=== PATIENT | male | born 1955 | race Hispanic/Latino ===

== ENCOUNTER 2018-12-19 22:10 | Emergency (ER) | payer BC, OTHER ==
--- OUTSIDE RECORDS SUMMARY | 2018-12-19 22:13 | XMS REPORT ---
:1955 [facility] Address [address] [place] [address] Dr. Reynoso [address] [place] [id number] Care Team Providers Name Role Phone Unavailable Unavailable Unavailable Problems This patient has no known problems. Allergies, Adverse Reactions, Alerts This patient has no known allergies or adverse reactions. Medications This patient has no known medications.
--- OUTSIDE RECORDS SUMMARY | 2018-12-19 22:13 | XMS REPORT | Clinical Summary ---
:1955 Author Organization [facility] Address [address] [place] [address] Care Team Providers Name Role Phone Manjinder Lovelace MD Primary Care Provider Allergies Not on File Medications Not on file Active Problems Not on file Encounters Date Type Specialty Care Team Description 11/27/2018 Hospital Encounter Radiology Tate Moreno Renal calculus 11/27/2018 Transcribe Orders Access Tate Moreno Renal calculus ( Primary MD Dx) after 12/18/2017 Social History Tobacco Use Types Packs/Day Years Used Date Never Assessed Sex Assigned at Date Recorded Not on file Job Start Date Occupation Industry Not on file Not on file Not on file Travel History Travel Start Travel End No recent travel history available. Last Filed Vital Signs Not on file Plan of Treatment Health Maintenance Due Date Last Done Comments COLON CANCER SCREENING 2004 SHINGLES VACCINES (#1) 2004 INFLUENZA VACCINE 04/03/2019 Procedures Procedure Name Priority Date/Time Associated Diagnosis Comments XR KUB KIDNEY Routine 11/27/2018 9:17 AM Renal calculus Results for this URETER BLADDER CDT procedure are in the results section. after 12/18/2017 Results XR Kub Kidney Ureter Bladder (11/27/2018 9:17 AM CDT) Narrative Performed At EXAMINATION:XR KUB KIDNEY URETER BLADDER [facility] CLINICAL HISTORY:N20.0 Calculus of kidney, N20.0 COMPARISON:November 28, 2017 IMPRESSION: No radiopaque calculi identified overlying the renal contours or expected course of the ureters. There are couple of pelvic phleboliths. The bowel gas pattern is nonspecific. Visualized lung bases are free of acute disease. Regional skeletal structures are within normal limits for age. I personally reviewed the images and the resident's findings and agree with the final report. [facility]-[id number] Procedure Note Hm Interface, Radiology Results Incoming - 11/27/2018 10:09 AM CDT EXAMINATION: XR KUB KIDNEY URETER BLADDER CLINICAL HISTORY: N20.0 Calculus of kidney, N20.0 COMPARISON: November 28, 2017 IMPRESSION: No radiopaque calculi identified overlying the renal contours or expected course of the ureters. There are couple of pelvic phleboliths. The bowel gas pattern is nonspecific. Visualized lung bases are free of acute disease. Regional skeletal structures are within normal limits for age. I personally reviewed the images and the resident's findings and agree with the final report. [facility]-[id number] Performing Organization Address City/State/Zipcode Phone Number [facility] [address] [place] [address] after 12/18/2017 Insurance Payer Benefit Plan / Group Subscriber ID Type Phone Address BCBS BCBS OUT OF STATE xxxxxxxxxxxx PPO Advance Directives Patient has advance care planning documents on file. For more information, please contact:Silvano Sorto[address] [place] [address]
[2018-12-19 22:42] LABS: Urine Blood 2+ (NEG); Urine Glucose NEGATIVE (NEG); Urine Protein 1+ (NEG); Urine Specific Gravity 1.025 (1.005-1.030); Urine pH 5.5 (5.0-7.0)
[2018-12-19 23:17] LABS: Urine Bacteria 20-50 /HPF (NONE SEEN); Urine Culture Reflex Order NOT NEEDED; Urine RBC <5 /HPF (NONE SEEN)
--- NOTE | 2018-12-19 23:22 | EDPHYS ---
Physician Documentation [facility] Name: Louis Grady Jr Age: 63 yrs Sex: Male : 1955 Arrival Date: 12/19/2018 Time: 22:11 Bed 26 Private MD: Whit Lovelace C ED Physician Gigi Singleton HPI: 12/19 23:12 This 63 yrs old Male presents to ER via Ambulatory with complaints of Urinary ps1 Frequency. 23:12 patient has a history of recurrent UTI's. Urologist in [place]. Has had scope and had ps1 bladder stones. Multiple courses of abx. Last UTI 6 months ago. No dysuria just frequency. Has chills but no fever. Cloudy urine. . Historical: - Allergies: 22:30 PENICILLINS; lp1 - Home Meds: 22:30 Janumet Oral [Active]; Glipizide Oral [Active]; levothyroxine oral [Active]; lp1 Hydrochlorothiazide Oral [Active]; tamsulosin oral oral [Active]; Tresiba FlexTouch U-100 100 unit/mL (3 mL) subcutaneous inpn 24 unit nightly [Active]; amlodipine oral [Active]; atorvastatin oral oral [Active]; - PMHx: 22:30 Diabetes - NIDDM; High Cholesterol; Hypertension; Hypothyroidism; Kidney stones; BPH; lp1 - PSHx: 22:30 Kidney stone removal; Shoulder surgery; lp1 - Immunization history:: Adult Immunizations up to date. - Social history:: Smoking status: Patient/guardian denies using tobacco. - Ebola Screening: : No symptoms or risks identified at this time. ROS: 23:12 Eyes: Negative for injury, pain, redness, and discharge, ENT: Negative for injury, ps1 pain, and discharge, Cardiovascular: Negative for chest pain, palpitations, and edema, Respiratory: Negative for shortness of breath, cough, wheezing, and pleuritic chest pain, Abdomen/GI: Negative for abdominal pain, nausea, vomiting, diarrhea, and constipation, MS/Extremity: Negative for injury and deformity, Skin: Negative for injury, rash, and discoloration, Neuro: Negative for headache, weakness, numbness, tingling, and seizure. 23:12 Constitutional: Positive for chills. 23:12 : Positive for urinary symptoms, urinary frequency. Exam: 23:12 Constitutional: This is a well developed, well nourished patient who is awake, alert, ps1 and in no acute distress. Head/Face: Normocephalic, atraumatic. Eyes: Pupils equal round and reactive to light, extra-ocular motions intact. Lids and lashes normal. Conjunctiva and sclera are non-icteric and not injected. ENT: Nares patent. No nasal discharge, no septal abnormalities noted. Tympanic membranes are normal and external auditory canals are clear. Oropharynx with no redness, swelling, or masses, exudates, or evidence of obstruction, uvula midline. Mucous membranes moist. Chest/axilla: Normal chest wall appearance and motion. Nontender with no deformity. No lesions are appreciated. Cardiovascular: Regular rate and rhythm. No gallops, murmurs, or rubs. Normal PMI, no JVD. No pulse deficits. Respiratory: Lungs have equal breath sounds bilaterally, clear to auscultation and percussion. No rales, rhonchi or wheezes noted. No increased work of breathing, no retractions or nasal flaring. Abdomen/GI: Soft, non-tender, with normal bowel sounds. No distension or tympany. No guarding or rebound. No evidence of tenderness throughout. Skin: Warm, dry with normal turgor. Normal color with no rashes, no lesions, and no evidence of cellulitis. MS/ Extremity: Pulses equal, no cyanosis. Neurovascular intact. Full, normal range of motion. Neuro: Awake and alert, GCS 15, oriented to person, place, time, and situation. Cranial nerves II-XII grossly intact. Sensory grossly intact. Vital Signs: 22:28 BP 149 / 83; Pulse 94; Resp 18; Temp 98.3(O); Pulse Ox 99% on R/A; Weight 103.42 kg; lp1 Height 5 ft. 8 in. (172.72 cm); Pain 5/10; 23:28 BP 144 / 78; Pulse 85; Resp 18; Pulse Ox 100% on R/A; Pain 2/10; mg2 22:28 Body Mass Index 34.67 (103.42 kg, 172.72 cm) lp1 MDM: 23:19 Patient medically screened. ps1 12/19 22:34 Order name: Urine Microscopic Only; Complete Time: 23:19 fc 12/19 22:34 Order name: Urine Culture 12/19 22:34 Order name: Urine Dipstick-Ancillary (obtain specimen); Complete Time: 22:34 12/19 22:36 Order name: Urine Dipstick--Ancillary (enter results) 12/19 22:37 Order name: Urine Dipstick-Ancillary; Complete Time: 23:00 EDMS Administered Medications: No medications were administered Disposition: 12/19/18 23:22 Discharged to Home. Impression: Acute cystitis. - Condition is Stable. - Discharge Instructions: Urinary Tract Infection, Adult. - Prescriptions for Bactrim DS 800- 160 mg Oral Tablet - take 1 tablet by ORAL route every 12 hours for 10 days; 20 tablet. - Medication Reconciliation Form, Thank You Letter, Antibiotic Education, Prescription Opioid Use form. - Follow up: Whit Lovelace MD; When: As needed; Reason: Recheck today's complaints, Continuance of care, Re-evaluation by your physician. Follow up: Emergency Department; When: As needed; Reason: Fever > 102 F, Trouble breathing, Worsening of condition. - Problem is new. - Symptoms are unchanged. Signatures: Dispatcher [employer] EDMS Mónica Hill RN RN fc Isa Gibson RN RN lp1 Gigi Singleton MD MD ps1 Percy Bautista, CARLOS RN mg2 Corrections: (The following items were deleted from the chart) 23:30 23:22 12/19/2018 23:22 Discharged to Home. Impression: Acute cystitis. Condition is mg2 Stable. Forms are Medication Reconciliation Form, Thank You Letter, Antibiotic Education, Prescription Opioid Use. Follow up: Whit Lovelace; When: As needed; Reason: Recheck today's complaints, Continuance of care, Re-evaluation by your physician. Follow up: Emergency Department; When: As needed; Reason: Fever > 102 F, Trouble breathing, Worsening of condition. Problem is new. Symptoms are unchanged. ps1
--- NOTE | 2018-12-19 23:22 | ER ---
Nurse's Notes [facility] Name: Louis Grady Jr Age: 63 yrs Sex: Male : 1955 Arrival Date: 12/19/2018 Time: 22:11 Bed 26 Private MD: Whit Lovelace C Diagnosis: Acute cystitis Presentation: 12/19 22:27 Presenting complaint: Patient states: Urinary frequency that began yesterday, burning lp1 with urination that began this evening, complaint of chills. Transition of care: patient was not received from another setting of care. Onset of symptoms was December 19, 2018. Risk Assessment: Do you want to hurt yourself or someone else? Patient reports no desire to harm self or others. Initial Sepsis Screen: Does the patient meet any 2 criteria? No. Patient's initial sepsis screen is negative. Does the patient have a suspected source of infection? No. Patient's initial sepsis screen is negative. Care prior to arrival: None. 22:27 Method Of Arrival: Ambulatory lp1 22:27 Acuity: RUDY 3 lp1 Historical: - Allergies: 22:30 PENICILLINS; lp1 - Home Meds: 22:30 Janumet Oral [Active]; Glipizide Oral [Active]; levothyroxine oral [Active]; lp1 Hydrochlorothiazide Oral [Active]; tamsulosin oral oral [Active]; Tresiba FlexTouch U-100 100 unit/mL (3 mL) subcutaneous inpn 24 unit nightly [Active]; amlodipine oral [Active]; atorvastatin oral oral [Active]; - PMHx: 22:30 Diabetes - NIDDM; High Cholesterol; Hypertension; Hypothyroidism; Kidney stones; BPH; lp1 - PSHx: 22:30 Kidney stone removal; Shoulder surgery; lp1 - Immunization history:: Adult Immunizations up to date. - Social history:: Smoking status: Patient/guardian denies using tobacco. - Ebola Screening: : No symptoms or risks identified at this time. Screenin:31 Abuse screen: Denies threats or abuse. Denies injuries from another. Nutritional lp1 screening: No deficits noted. Tuberculosis screening: No symptoms or risk factors identified. Fall Risk None identified. Assessment: 23:09 General: Appears in no apparent distress. comfortable, Behavior is calm, cooperative. mg2 Pain: Complains of pain in scrotal area Pain does not radiate. Quality of pain is described as discomfort Pain began gradually. Neuro: Level of Consciousness is awake, alert, obeys commands, Oriented to person, place, time, situation. Cardiovascular: Capillary refill < 3 seconds Patient's skin is warm and dry. Respiratory: Airway is patent Respiratory effort is even, unlabored, Respiratory pattern is regular, symmetrical. GI: No signs and/or symptoms were reported involving the gastrointestinal system. : Reports burning with urination, since yesterday urinary frequency, since yesterday. EENT: No signs and/or symptoms were reported regarding the EENT system. Derm: Skin is intact, is healthy with good turgor, Skin is pink, warm \T\ dry. normal. Musculoskeletal: Circulation, motion, and sensation intact. Capillary refill < 3 seconds. Vital Signs: 22:28 BP 149 / 83; Pulse 94; Resp 18; Temp 98.3(O); Pulse Ox 99% on R/A; Weight 103.42 kg; lp1 Height 5 ft. 8 in. (172.72 cm); Pain 5/10; 23:28 BP 144 / 78; Pulse 85; Resp 18; Pulse Ox 100% on R/A; Pain 2/10; mg2 22:28 Body Mass Index 34.67 (103.42 kg, 172.72 cm) lp1 ED Course: 22:11 Patient arrived in ED. am2 22:11 Whit Lovelace MD is Private Physician. am2 22:27 Triage completed. lp1 22:28 Arm band placed on left wrist. lp1 22:30 Bed in low position. Call light in reach. Side rails up X 1. jp3 22:30 Urine collected: clean catch specimen, cloudy, rambo colored, Amount Voided: 50mL. jp3 22:35 Warm blanket given. Pulse ox on. NIBP on. jp3 22:45 Urine Dipstick--Ancillary (enter results) Sent. jp3 22:45 Urine Culture Sent. jp3 22:45 Urine Microscopic Only Sent. jp3 22:51 Percy Bautista, CARLOS is Primary Nurse. mg2 23:00 Gigi Singleton MD is Attending Physician. ps1 23:10 No provider procedures requiring assistance completed. mg2 23:19 Whit Lovelace MD is Referral Physician. ps1 23:29 Patient did not have IV access during this emergency room visit. mg2 Administered Medications: No medications were administered Outcome: 23:22 Discharge ordered by . ps1 23:29 Discharged to home ambulatory, with family. mg2 23:29 Condition: stable 23:29 Discharge instructions given to patient, family, Instructed on discharge instructions, follow up and referral plans. medication usage, Demonstrated understanding of instructions, follow-up care, medications, Prescriptions given X 1. 23:30 Patient left the ED. mg2 Addendum: 12/22/2018 08:22 Addendum: Culture Results: Positive urine culture. No further action required. Bacteria h b sensitive to prescribed antibiotic. Signatures: Isa Gibson RN RN lp1 Joanne Aguirre RN RN Mai Galaviz Phillip, MD MD ps1 Percy Bautista RN RN mg2 Flynn Lacey jp3
== END 2018-12-19 23:30 | disposition home or self-care (01) ==
LOC: ER 22:10
DX: N30.00 Acute cystitis without hematuria (principal); I10 Essential (primary) hypertension; E11.9 Type 2 diabetes mellitus without complications; E78.00 Pure hypercholesterolemia, unspecified; E03.9 Hypothyroidism, unspecified; Z87.442 Personal history of urinary calculi; Z88.0 Allergy status to penicillin
CPT/HCPCS: 81003; 81015; 87077; 87086; 87088; 87186; 99283

== ENCOUNTER 2019-08-09 11:20 | Emergency (ER) | payer BC ==
--- OUTSIDE RECORDS SUMMARY | 2019-08-09 11:23 | XMS REPORT ---
:1955 [facility] Address [address] [place] [address] Dr. Reynoso [address] [place] [address] Care Team Providers Name Role Phone Unavailable Unavailable Unavailable Problems This patient has no known problems. Allergies, Adverse Reactions, Alerts This patient has no known allergies or adverse reactions. Medications This patient has no known medications.
[2019-08-09] MEDS ORDERED: NA CHLORIDE 0.9% 1,000 ML ONE (12:08)
[2019-08-09 12:34] LABS: Absolute Lymphocytes (CBC) 1.1 K/uL (0.7-4.9); Basophils % 0.4 % (0-1.3); Hematocrit 41.4 % (39.6-49.0); Lymphocytes % 9.6 % (15.3-44.8); MPV 7.9 fL (7.6-11.3); RBC Red Blood Cell Count 4.78 M/uL (4.33-5.43)
[2019-08-09 12:40] LABS: Urine Blood TRACE (NEG); Urine Glucose NEGATIVE (NEG); Urine Protein NEGATIVE (NEG); Urine Specific Gravity 1.025 (1.005-1.030)
[2019-08-09 12:51] LABS: Albumin 3.9 g/dL (3.4-5.0); Bilirubin Total 0.4 mg/dL (0.2-1.0); Potassium 3.8 mmol/L (3.5-5.1); Protein, Total 7.9 g/dL (6.4-8.2)
--- NOTE | 2019-08-09 13:19 | EDPHYS ---
Physician Documentation [facility] Name: Louis Grady Jr Age: 63 yrs Sex: Male : 1955 Arrival Date: 08/09/2019 Time: 11:24 Bed 19 Private MD: Whit Lovelace C ED Physician Amos Angel HPI: 08/09 12:05 This 63 yrs old Male presents to ER via Ambulatory with complaints of Flu jmm Symptoms. 12:05 The patient or guardian reports cough. Onset: The symptoms/episode began/occurred jmm gradually, 6 day(s) ago. Modifying factors: The symptoms are alleviated by nothing, the symptoms are aggravated by nothing. This is a 63 year old male with a history of DM, HLP, HTN, hypothyroidism that presents to the ED with complaints of cough, fever, chills beginning 6 days ago. Was prescribed abx and tamiflu which he began taking this past Sunday. Symptoms alleviated this past but returned today with chills. Denies vomiting but complains of dysuria. Patient states he is prone to frequent UTI's. . Historical: - Allergies: 11:43 PENICILLINS; ph - PMHx: 11:43 BPH; Diabetes - NIDDM; High Cholesterol; Hypertension; Hypothyroidism; Kidney stones; ph - PSHx: 11:43 Kidney stone removal; Shoulder surgery; ph ROS: 12:05 Constitutional: Positive for body aches, chills. jmm 12:05 Respiratory: Positive for cough. 12:05 Abdomen/GI: Negative for abdominal pain. 12:05 All other systems are negative. Exam: 12:05 Constitutional: This is a well developed, well nourished patient who is awake, alert, jmm and in no acute distress. Head/Face: atraumatic. Eyes: EOMI, no conjunctival erythema appreciated 12:05 Cardiovascular: Regular rate and rhythm. No edema appreciated Respiratory: Normal respirations, no respiratory distress appreciated Abdomen/GI: Non distended, soft Back: Normal ROM Skin: General appearance color normal MS/ Extremity: Moves all extremities, no obvious deformities appreciated, no edema noted to the lower extremities Neuro: Awake and alert, normal gait Psych: Behavior is normal, Mood is normal, Patient is cooperative and pleasant 12:05 ENT: Posterior pharynx: erythema, that is moderate. Vital Signs: 11:43 BP 145 / 73; Pulse 93; Resp 18; Temp 98.5(O); Pulse Ox 96% on R/A; Weight 106.59 kg; ph Height 5 ft. 8 in. (172.72 cm); 13:01 BP 124 / 64; Pulse 88; Resp 18; Pulse Ox 96% on R/A; Pain 0/10; em 11:43 Body Mass Index 35.73 (106.59 kg, 172.72 cm) ph MDM: 11:49 Patient medically screened. [facility] 13:16 Data reviewed: vital signs, nurses notes. Counseling: I had a detailed discussion with [facility] the patient and/or guardian regarding: the historical points, exam findings, and any diagnostic results supporting the discharge/admit diagnosis, lab results, the need for outpatient follow up, to return to the emergency department if symptoms worsen or persist or if there are any questions or concerns that arise at home. ED course: Patient is alert and non toxic in appearance in the ED. UA consistent with UTI. Will treat with oral abx. patient is otherwise given strict return precautions. Patient understood and agrees with the plan of care. . 08/09 12:01 Order name: Flu; Complete Time: 13:10 [facility] 08/09 12:01 Order name: CBC with Diff; Complete Time: 12:49 [facility] 08/09 12:01 Order name: CMP; Complete Time: 12:58 [facility] 08/09 12:18 Order name: Urine Dipstick--Ancillary (enter results); Complete Time: 12:49 08/09 12:50 Order name: Urine Culture [facility] 08/09 12:01 Order name: Urine Dipstick-Ancillary (obtain specimen); Complete Time: 12:05 [facility] Administered Medications: 12:20 Drug: NS 0.9% 1000 ml Route: IV; Rate: 1 bolus; Site: right antecubital; em 13:37 Follow up: IV Status: Completed infusion; IV Intake: 1000ml em Disposition: 08/10 07:19 Co-signature as Attending Physician, Amos Angel MD I agree with the assessment and kdr plan of care. Disposition: 08/09/19 13:18 Discharged to Home. Impression: Acute upper respiratory infection, unspecified, Urinary tract infection, site not specified. - Condition is Stable. - Discharge Instructions: Upper Respiratory Infection, Adult, Urinary Tract Infection, Adult. - Prescriptions for Levaquin 750 mg Oral Tablet - take 1 tablet by ORAL route once daily for 10 days; 10 tablet. - Medication Reconciliation Form, Thank You Letter, Antibiotic Education, Prescription Opioid Use form. - Follow up: Whit Lovelace MD; When: 2 - 3 days; Reason: Recheck today's complaints, Continuance of care, Re-evaluation by your physician. Signatures: Dispatcher [employer] EDAmos Nguyen MD MD kdr Mickail, Joel, PA PA Perez Rios, THIRD MATE THIRD MATE Dinora Dumont, RN RN ph Corrections: (The following items were deleted from the chart) 08/09 13:39 13:18 08/09/2019 13:18 Discharged to Home. Impression: Acute upper respiratory em infection, unspecified; Urinary tract infection, site not specified. Condition is Stable. Forms are Medication Reconciliation Form, Thank You Letter, Antibiotic Education, Prescription Opioid Use. Follow up: Whit Lovelace; When: 2 - 3 days; Reason: Recheck today's complaints, Continuance of care, Re-evaluation by your physician. su
--- NOTE | 2019-08-09 13:19 | ER ---
Nurse's Notes [facility] Name: Louis Grady Jr Age: 63 yrs Sex: Male : 1955 Arrival Date: 08/09/2019 Time: 11:24 Bed 19 Private MD: Whit Lovelace C Diagnosis: Acute upper respiratory infection, unspecified;Urinary tract infection, site not specified Presentation: 08/09 11:39 Presenting complaint: Patient states: Body aches, chills, sweats, and non productive ph cough since Sunday, reports seeing and was prescribed Tamiflu and Z pack but could not start Tamiflu until , was not tested for flu at , denies SOB, N/V. Transition of care: patient was not received from another setting of care. Onset of symptoms was August 09, 2019. Risk Assessment: Do you want to hurt yourself or someone else? Patient reports no desire to harm self or others. Initial Sepsis Screen: Does the patient meet any 2 criteria? No. Patient's initial sepsis screen is negative. Does the patient have a suspected source of infection? No. Patient's initial sepsis screen is negative. Care prior to arrival: None. 11:39 Method Of Arrival: Ambulatory ph 11:39 Acuity: RUDY 3 ph Historical: - Allergies: 11:43 PENICILLINS; ph - PMHx: 11:43 BPH; Diabetes - NIDDM; High Cholesterol; Hypertension; Hypothyroidism; Kidney stones; ph - PSHx: 11:43 Kidney stone removal; Shoulder surgery; ph Screenin:49 Abuse screen: Denies threats or abuse. Nutritional screening: No deficits noted. em Tuberculosis screening: No symptoms or risk factors identified. Fall Risk None identified. Assessment: 12:05 General: Appears in no apparent distress. comfortable, Behavior is calm, cooperative. em Pain: Complains of pain in "all over" Pain currently is 0 out of 10 on a pain scale. Quality of pain is described as aching, Pain began last Sunday. Neuro: Level of Consciousness is awake, alert, obeys commands, Oriented to person, place, time, situation, Appropriate for age. Cardiovascular: Capillary refill < 3 seconds Patient's skin is warm and dry. Respiratory: Airway is patent Respiratory effort is even, unlabored, Respiratory pattern is regular, symmetrical. : Reports urinary frequency, Denies burning with urination. Derm: Skin is intact, is healthy with good turgor, Skin is pink, warm \\T\\ dry. Musculoskeletal: Capillary refill < 3 seconds, Range of motion: intact in all extremities. 13:01 Reassessment: Patient appears in no apparent distress at this time. Patient and/or em family updated on plan of care and expected duration. Pain level reassessed. Patient is alert, oriented x 3, equal unlabored respirations, skin warm/dry/pink. Vital Signs: 11:43 BP 145 / 73; Pulse 93; Resp 18; Temp 98.5(O); Pulse Ox 96% on R/A; Weight 106.59 kg; ph Height 5 ft. 8 in. (172.72 cm); 13:01 BP 124 / 64; Pulse 88; Resp 18; Pulse Ox 96% on R/A; Pain 0/10; em 11:43 Body Mass Index 35.73 (106.59 kg, 172.72 cm) ph ED Course: 11:24 Patient arrived in ED. mr 11:24 Whit Lovelace MD is Private Physician. mr 11:42 Triage completed. ph 11:44 Arm band placed on Patient placed in an exam room. ph 11:45 Perez Moran LVN is Primary Nurse. em 11:45 James Zaragoza PA is PHCP. jmm 11:45 Amos Angel MD is Attending Physician. jmm 11:49 Patient has correct armband on for positive identification. Bed in low position. Call em light in reach. Pulse ox on. NIBP on. 12:11 Flu and/or RSV swab sent to lab. jb1 12:20 Initial lab(s) drawn, by de, sent to lab. Inserted saline lock: 20 gauge in right em antecubital area, using aseptic technique. Blood collected. 13:18 Whit Lovelace MD is Referral Physician. jm 13:36 No provider procedures requiring assistance completed. IV discontinued, intact, em bleeding controlled, No redness/swelling at site. Pressure dressing applied. Administered Medications: 12:20 Drug: NS 0.9% 1000 ml Route: IV; Rate: 1 bolus; Site: right antecubital; em 13:37 Follow up: IV Status: Completed infusion; IV Intake: 1000ml em Intake: 13:37 IV: 1000ml; Total: 1000ml. em Outcome: 13:18 Discharge ordered by MD. blue 13:36 Discharged to home ambulatory, with family. em 13:36 Condition: good 13:36 Discharge instructions given to patient, Instructed on discharge instructions, follow up and referral plans. medication usage, Demonstrated understanding of instructions, follow-up care, medications, Prescriptions given X 1. 13:39 Patient left the ED. em Signatures: Gagandeep Ferris jb1 James Zaragoza PA PA jmm Rivera, Mary mr Perez Moran, ELECTROTYPE MOLDER ELECTROTYPE MOLDER em Dinora Vega, RN RN ph Corrections: (The following items were deleted from the chart) 11:43 11:39 Acuity: RUDY 4 ph ph
[2019-08-09 13:43] VITALS: TEMP 98.5; O2SAT 96
[2019-08-09 13:45] VITALS: BP 124/64
== END 2019-08-09 13:39 | disposition home or self-care (01) ==
LOC: ER 11:20
DX: J06.9 Acute upper respiratory infection, unspecified (principal); N39.0 Urinary tract infection, site not specified; Z88.0 Allergy status to penicillin
CPT/HCPCS: 87088; 85025; 36415; 81003; 80053; 87804 ×2; 96360; 99284; J7030; 87086

== ENCOUNTER 2022-07-18 13:05 | Emergency (ER) | payer MEDICARE, OTHER ==
--- OUTSIDE RECORDS SUMMARY | 2022-07-18 13:09 | XMS REPORT | Continuity of Care Document ---
:1955 Author Organization [facility] t Address [address] [place] [address] Care Team Providers Name Role Phone Manjinder Lovelace MD Primary Care Physician Le Attending Clinician Unavailable Annie Attending Clinician Unavailable Tate Moreno Attending Clinician [phone] Le Admitting Clinician Unavailable Annie Admitting Clinician Unavailable Payers Payer Name Policy Type Policy Number Effective Date Expiration Date S ruiz [facility] - [id number] [facility] (MEDICARE REPLACEMENT/ADVANTA GE - PPO) [facility] [id number] (MEDICARE 00:00:00 REPLACEMENT/ADVANTA GE - PPO) [facility] - [id number] [facility] 00:00:00 (MEDICARE REPLACEMENT/ADVANTA GE - HMO) Problems Condition Condition Condition Status Onset Resolution Last Treating Co mments Source Name Details Category Date Date Treatment Clinician Date Recurrent Recurrent Problem Active 2020-09 Karuna sadie urinary Urinary 2-21 Family tract Tract 00:00: Practic infection Infection 00 e Urinary Urinary Problem Active 2020-09 [place] Tract 1-18 [facility] infectious Infectious 00:00: Ur ology disease Disease 00 Erectile Erectile Problem Active 2020-09 [place] dysfunctio Dysfunctio 109 Me tro n n 00:00: Urology 00 Type 2 Type 2 Problem Active [place] diabetes Diabetes 9-21 Family mellitus Mellitus 00:00: Practi c 00 e Peripheral Peripheral Problem Active [place] pulse Pulse 6-17 Family absent Absent 00:00: Practic 00 e Chronic Chronic Problem Active 2017-09 [place] urinary Urinary 2-06 [facility] tract Tract 00:00: Urology infection Infection 00 Hypothyroi Hypothyroi Problem Active 2016-09 [place] dism dism 0-25 Family 00:00: Practic 00 e Complicati Complicati Problem Active 2016-09 [place] on due to on Due to 0-25 Fami ly diabetes Diabetes 00:00: Practi c mellitus Mellitus 00 e Hyperlipid Hyperlipid Problem Active 2016-09 [place] emia emia 0-25 Family 00:00: Practic 00 e Obesity Obesity Problem Active 2016-09 [facility] 0-25 Family 00:00: Practic 00 e Essential Essential Problem Active 2016-09 Karuna noel hypertensi Hypertensi 0-25 Fa reema on on 00:00: Practic 00 e Primary Primary Problem Active 2016-09 [facility] erectile Erectile 0-25 Family dysfunctio Dysfunctio 00:00: Pr actic n n 00 e Osteoarthr Osteoarthr Problem Active 2016-09 [place] itis itis 0-25 Family 00:00: Practic 00 e Disorder Disorder Problem Active 2016-09 Kwong ge due to Due to 0-25 Family type 2 Type 2 00:00: Practic diabetes Diabetes 00 e mellitus Mellitus Impotence Impotence Problem Active 2016-09 Karuna noel 0-25 Family 00:00: Practic 00 e Hypertensi Hypertensi Problem Active 2016-09 [place] ve ve 0-25 Family disorder Disorder 00:00: Practi c 00 e Arthropath Arthropath Problem Active 2016-09 [place] y y 0-25 Family 00:00: Practic 00 e Anesthesia Anesthesia Problem Active 2016-09 [place] of skin of Skin 0-25 Family 00:00: Practic 00 e Family Family Problem Active 2016-09 [facility] history of History of 0-25 Fa reema diabetes Diabetes 00:00: Practi c mellitus Mellitus 00 e General General Problem Active 2016-09 [facility] finding of Finding of 0-25 Fa reema observatio Observatio 00:00: Pr actic n of n of 00 e patient Patient Family Family Problem Active 2016-09 [facility] history of History of 0-25 Fa reema cardiac Cardiac 00:00: Practic disorder Disorder 00 e Hypertensi Hypertensi Problem Active [place] ve ve 2-22 [facility] disorder Disorder 00:00: Urolog y 00 Ureteric Ureteric Problem Active [place] stone Stone 2-22 [facility] 00:00: Urology 00 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 00:00: Urology disease Disease 00 Fortino Fortino Problem Active [place] hematuria Hematuria 2-22 Metr o 00:00: Urology 00 Lower Lower Problem Active [place] urinary Urinary 2- [facility] tract Tract 00:00: Urology symptoms Symptoms 00 due to Due to benign Benign prostatic Prostatic hypertroph Hypertroph y y Phimosis Phimosis Problem Active [place] 05-04 [facility] 00:00: Urology 00 Allergies, Adverse Reactions, Alerts Allergy Allergy Status Severity Reaction(s) Onset Inactive Treating Comm ents Source Name Type Date Date Clinician PENICILL Allergy Active [place] INS to 09-03 [facility] substanc 00:00: Urology e 00 Social History Social Habit Start Date Stop Date Quantity Comments Source Sex Assigned At [birth year] [facility] 00:00:00 00:00:00 Smoking Status Start Date Stop Date Source Former Smoker [place] [facility] Ur [facility]logy Never Smoker [facility] Tobacco smoking consumption unknown [facility] Medications Ordered Filled Start Stop Current Ordering Indication Dosage Frequency Signature Comments Components Source Medication Medication Date Date Medication? Clinician (SIG) Name Name atorvastati atorvastati No atorvastat [place] n 20 mg n 20 mg in 20 mg [facility] tablet tablet tablet Urology BD BD No BD [place] Ultra-Fine Ultra-Fine Ultra-Fine [facility] Roma Pen Roma Pen Roma Pen Uro logy Needle 32 Needle 32 Needle 32 gauge x gauge x gauge x " " " Cialis 20 Cialis 20 No 1 Cialis 20 [place] mg tablet mg tablet mg tablet [facility] Take 1 Take 1 Take 1 Urology tablet as tablet as tablet as needed by needed by needed by oral route. oral route. oral route. etodolac etodolac No etodolac Don ston 500 mg 500 mg 500 mg [facility] tablet tablet tablet Urology glipizide glipizide No glipizide [place] ER 10 mg ER 10 mg ER 10 mg Met ro tablet, tablet, tablet, Urolog y extended extended extended release 24 release 24 release 24 hr hr hr hydrochloro hydrochloro No hydrochlor [place] thiazide thiazide othiazide Me tro 12.5 mg 12.5 mg 12.5 mg Urolog y capsule capsule capsule Janumet XR Janumet XR No Janumet XR [place] 50 mg-1,000 50 mg-1,000 50 M etro mg mg mg-1,000 Urology tablet,exte tablet,exte mg nded nded tablet,ext release release ended release levothyroxi levothyroxi No levothyrox [place] ne 100 mcg ne 100 mcg ine 100 [facility] tablet tablet mcg tablet Urolo gy nystatin nystatin No nystatin [place] st[place] 100,000 100,000 100,000 [facility] unit/gram unit/gram unit/gram Urology topical topical topical cream cream cream sulfamethox sulfamethox No sulfametho [place] azole 800 azole 800 xazole 800 [facility] mg-trimetho mg-trimetho mg-trimeth Urology prim 160 mg prim 160 mg oprim 160 tablet TAKE tablet TAKE mg tablet 1 TABLET 1 TABLET TAKE 1 EVERY 12 EVERY 12 TABLET HOURS BY HOURS BY EVERY 12 ORAL ROUTE ORAL ROUTE HOURS BY FOR 7 DAYS. FOR 7 DAYS. ORAL ROUTE FOR 7 DAYS. tamsulosin tamsulosin No tamsulosin [place] 0.4 mg 0.4 mg 0.4 mg [facility] capsule capsule capsule Urolog y TAKE 1 TAKE 1 TAKE 1 CAPSULE BY CAPSULE BY CAPSULE BY MOUTH DAILY MOUTH DAILY MOUTH DAILY Tresiba Tresiba No Tresiba [place] FlexTouch FlexTouch FlexTouch [facility] U-200 U-200 U-200 Urology insulin 200 insulin 200 insulin unit/mL (3 unit/mL (3 200 mL) mL) unit/mL (3 subcutaneou subcutaneou mL) s pen s pen subcutaneo us pen Trulicity Trulicity No Trulicity [place] 1.5 mg/0.5 1.5 mg/0.5 1.5 mg/0.5 [facility] mL mL mL Urology subcutaneou subcutaneou subcutaneo s pen s pen us pen injector injector injector Accu-Chek Accu-Chek No Accu-Chek [place] Fastclix Fastclix Fastclix Met ro Lancet Drum Lancet Drum Lancet Urology Drum Accu-Chek Accu-Chek No Accu-Chek [place] Guide test Guide test Guide test [facility] strips strips strips Urology amlodipine amlodipine No amlodipine [place] 10 10 10 [facility] mg-olmesart mg-olmesart mg-olmesar Urology an 20 mg an 20 mg perera 20 mg tablet tablet tablet atorvastati atorvastati No atorvastat [place] n 20 mg n 20 mg in 20 mg [facility] tablet tablet tablet Urology BD BD No BD [place] Ultra-Fine Ultra-Fine Ultra-Fine [facility] Roma Pen Roma Pen Roma Pen Uro logy Needle 32 Needle 32 Needle 32 gauge x gauge x gauge x " " " Cialis 20 Cialis 20 No 1 Cialis 20 [place] mg tablet mg tablet mg tablet [facility] Take 1 Take 1 Take 1 Urology tablet as tablet as tablet as needed by needed by needed by oral route. oral route. oral route. ciprofloxac ciprofloxac No ciprofloxa [place] in 250 mg in 250 mg indra 250 mg [facility] tablet tablet tablet Urology etodolac etodolac No etodolac [place] 500 mg 500 mg 500 mg [facility] tablet tablet tablet Urology glipizide glipizide No glipizide [place] ER 10 mg ER 10 mg ER 10 mg Met ro tablet, tablet, tablet, Urolog y extended extended extended release 24 release 24 release 24 hr hr hr hydrochloro hydrochloro No hydrochlor [place] thiazide thiazide othiazide De tro 12.5 mg 12.5 mg 12.5 mg Urolog y capsule capsule capsule Janumet XR Janumet XR No Janumet XR [place] 50 mg-1,000 50 mg-1,000 50 M etro mg mg mg-1,000 Urology tablet,exte tablet,exte mg nded nded tablet,ext release release ended release levothyroxi levothyroxi No levothyrox [place] ne 100 mcg ne 100 mcg ine 100 [facility] tablet tablet mcg tablet Urolo gy nystatin nystatin No nystatin [place] 100,000 100,000 100,000 [facility] unit/gram unit/gram unit/gram Urology topical topical topical cream cream cream sulfamethox sulfamethox No sulfametho [place] azole 800 azole 800 xazole 800 [facility] mg-trimetho mg-trimetho mg-trimeth Urology prim 160 mg prim 160 mg oprim 160 tablet TAKE tablet TAKE mg tablet 1 TABLET 1 TABLET TAKE 1 EVERY 12 EVERY 12 TABLET HOURS BY HOURS BY EVERY 12 ORAL ROUTE ORAL ROUTE HOURS BY FOR 7 DAYS. FOR 7 DAYS. ORAL ROUTE FOR 7 DAYS. tamsulosin tamsulosin No tamsulosin [place] 0.4 mg 0.4 mg 0.4 mg [facility] capsule capsule capsule Urolog y TAKE 1 TAKE 1 TAKE 1 CAPSULE BY CAPSULE BY CAPSULE BY MOUTH DAILY MOUTH DAILY MOUTH DAILY Tresiba Tresiba No Tresiba [place] FlexTouch FlexTouch FlexTouch [facility] U-200 U-200 U-200 Urology insulin 200 insulin 200 insulin unit/mL (3 unit/mL (3 200 mL) mL) unit/mL (3 subcutaneou subcutaneou mL) s pen s pen subcutaneo us pen Trulicity Trulicity No Trulicity [place] 1.5 mg/0.5 1.5 mg/0.5 1.5 mg/0.5 [facility] mL mL mL Urology subcutaneou subcutaneou subcutaneo s pen s pen us pen injector injector injector Accu-Chek Accu-Chek No Accu-Chek [place] Fastclix Fastclix Fastclix Met ro Lancet Drum Lancet Drum Lancet Urology Drum Accu-Chek Accu-Chek No Accu-Chek [place] Guide test Guide test Guide test [facility] strips strips strips Urology amlodipine amlodipine No amlodipine [place] 10 10 10 [facility] mg-olmesart mg-olmesart mg-olmesar Urology an 20 mg an 20 mg perera 20 mg tablet tablet tablet atorvastati atorvastati No atorvastat [place] n 20 mg n 20 mg in 20 mg [facility] tablet tablet tablet Urology azithromyci azithromyci No azithromyc [place] n 250 mg n 250 mg in 250 mg Me tro tablet TAKE tablet TAKE tablet Urology 2 TABLETS 2 TABLETS TAKE 2 BY MOUTH BY MOUTH TABLETS BY TODAY, THEN TODAY, THEN MOUTH TAKE 1 TAKE 1 TODAY, TABLET TABLET THEN TAKE DAILY FOR 4 DAILY FOR 4 1 TABLET DAYS DAYS DAILY FOR 4 DAYS BD BD No BD [place] Ultra-Fine Ultra-Fine Ultra-Fine [place] Roma Pen Roma Pen Roma Pen Uro logy Needle 32 Needle 32 Needle 32 gauge x gauge x gauge x " " " Cialis 20 Cialis 20 No 1 Cialis 20 [place] mg tablet mg tablet mg tablet [facility] Take 1 Take 1 Take 1 Urology tablet as tablet as tablet as needed by needed by needed by oral route. oral route. oral route. ciprofloxac ciprofloxac No ciprofloxa [place] in 250 mg in 250 mg indra 250 mg [facility] tablet tablet tablet Urology etodolac etodolac No etodolac [place] 500 mg 500 mg 500 mg [facility] tablet tablet tablet Urology fluticasone fluticasone No fluticason [place] propionate propionate e Met ro 50 50 propionate Urology mcg/actuati mcg/actuati 50 on nasal on nasal mcg/actuat spray,suspe spray,suspe ion nasal nsion ONE nsion ONE spray,susp SPRAY IN SPRAY IN ension ONE EACH EACH SPRAY IN NOSTRIL TWO NOSTRIL TWO EACH TIMES A DAY TIMES A DAY NOSTRIL TWO TIMES A DAY glipizide glipizide No glipizide [place] ER 10 mg ER 10 mg ER 10 mg Met ro tablet, tablet, tablet, Urolog y extended extended extended release 24 release 24 release 24 hr hr hr hydrochloro hydrochloro No hydrochlor [place] thiazide thiazide othiazide Me tro 12.5 mg 12.5 mg 12.5 mg Urolog y capsule capsule capsule ivermectin ivermectin No ivermectin [place] 3 mg tablet 3 mg tablet 3 mg M etro TAKE 6 TAKE 6 tablet Urology TABLETS BY TABLETS BY TAKE 6 MOUTH ON MOUTH ON TABLETS BY DAY 1 AND DAY 1 AND MOUTH ON DAY 3 DAY 3 DAY 1 AND DAY 3 Janumet XR Janumet XR No Janumet XR [place] 50 mg-1,000 50 mg-1,000 50 M etro mg mg mg-1,000 Urology tablet,exte tablet,exte mg nded nded tablet,ext release release ended release levothyroxi levothyroxi No levothyrox [place] ne 100 mcg ne 100 mcg ine 100 [facility] tablet tablet mcg tablet Urolo gy nystatin nystatin No nystatin [place] 100,000 100,000 100,000 [facility] unit/gram unit/gram unit/gram Urology topical topical topical cream cream cream sulfamethox sulfamethox No sulfametho [place] azole 800 azole 800 xazole 800 [facility] mg-trimetho mg-trimetho mg-trimeth Urology prim 160 mg prim 160 mg oprim 160 tablet TAKE tablet TAKE mg tablet 1 TABLET 1 TABLET TAKE 1 EVERY 12 EVERY 12 TABLET HOURS BY HOURS BY EVERY 12 ORAL ROUTE ORAL ROUTE HOURS BY FOR 7 DAYS. FOR 7 DAYS. ORAL ROUTE FOR 7 DAYS. tamsulosin tamsulosin No tamsulosin [place] 0.4 mg 0.4 mg 0.4 mg [facility] capsule capsule capsule Urolog y TAKE 1 TAKE 1 TAKE 1 CAPSULE BY CAPSULE BY CAPSULE BY MOUTH DAILY MOUTH DAILY MOUTH DAILY Tresiba Tresiba No Tresiba [place] FlexTouch FlexTouch FlexTouch [facility] U-200 U-200 U-200 Urology insulin 200 insulin 200 insulin unit/mL (3 unit/mL (3 200 mL) mL) unit/mL (3 subcutaneou subcutaneou mL) s pen s pen subcutaneo us pen Trulicity Trulicity No Trulicity [place] 1.5 mg/0.5 1.5 mg/0.5 1.5 mg/0.5 [facility] mL mL mL Urology subcutaneou subcutaneou subcutaneo s pen s pen us pen injector injector injector Accu-Chek Accu-Chek No Accu-Chek [place] Fastclix Fastclix Fastclix Met ro Lancet Drum Lancet Drum Lancet Urology Drum Accu-Chek Accu-Chek No Accu-Chek [place] Guide test Guide test Guide test [facility] strips strips strips Urology amlodipine amlodipine No amlodipine [place] 10 10 10 [facility] mg-olmesart mg-olmesart mg-olmesar Urology an 20 mg an 20 mg perera 20 mg tablet tablet tablet atorvastati atorvastati No atorvastat [place] n 20 mg n 20 mg in 20 mg [facility] tablet tablet tablet Urology azithromyci azithromyci No azithromyc [place] n 250 mg n 250 mg in 250 mg Me tro tablet TAKE tablet TAKE tablet Urology 2 TABLETS 2 TABLETS TAKE 2 BY MOUTH BY MOUTH TABLETS BY TODAY, THEN TODAY, THEN MOUTH TAKE 1 TAKE 1 TODAY, TABLET TABLET THEN TAKE DAILY FOR 4 DAILY FOR 4 1 TABLET DAYS DAYS DAILY FOR 4 DAYS BD BD No BD [place] Ultra-Fine Ultra-Fine Ultra-Fine [facility] Roma Pen Roma Pen Roma Pen Uro logy Needle 32 Needle 32 Needle 32 gauge x gauge x gauge x " " " Cialis 20 Cialis 20 No 1 Cialis 20 [place] mg tablet mg tablet mg tablet [facility] Take 1 Take 1 Take 1 Urology tablet as tablet as tablet as needed by needed by needed by oral route. oral route. oral route. ciprofloxac ciprofloxac No ciprofloxa [place] in 250 mg in 250 mg indra 250 mg [facility] tablet tablet tablet Urology ciprofloxac ciprofloxac No ciprofloxa [place] in 500 mg in 500 mg indra 500 mg [facility] tablet TAKE tablet TAKE tablet Urology 1 TABLET BY 1 TABLET BY TAKE 1 MOUTH TWICE MOUTH TWICE TABLET BY A DAY A DAY MOUTH TWICE A DAY COMPOUNDED COMPOUNDED No COMPOUNDED [place] MEDICATION MEDICATION MEDICATION [facility] TADALAFIL TADALAFIL TADALAFIL Urology 22MG 22MG 22MG CAPSULE CAPSULE CAPSULE TAKE 1 TAKE 1 TAKE 1 CAPSULE BY CAPSULE BY CAPSULE BY MOUTH ONCE MOUTH ONCE MOUTH ONCE DAILY DAILY DAILY NEEDED NEEDED NEEDED (EMPTY (EMPTY (EMPTY STOMACH) STOMACH) STOMACH) etodolac etodolac No etodolac [place] 500 mg 500 mg 500 mg [facility] tablet tablet tablet Urology fluticasone fluticasone No fluticason [place] propionate propionate e Met ro 50 50 propionate Urology mcg/actuati mcg/actuati 50 on nasal on nasal mcg/actuat spray,suspe spray,suspe ion nasal nsion ONE nsion ONE spray,susp SPRAY IN SPRAY IN ension ONE EACH EACH SPRAY IN NOSTRIL TWO NOSTRIL TWO EACH TIMES A DAY TIMES A DAY NOSTRIL TWO TIMES A DAY glipizide glipizide No glipizide [place] ER 10 mg ER 10 mg ER 10 mg Met ro tablet, tablet, tablet, Urolog y extended extended extended release 24 release 24 release 24 hr hr hr hydrochloro hydrochloro No hydrochlor [place] thiazide thiazide othiazide Me tro 12.5 mg 12.5 mg 12.5 mg Urolog y capsule capsule capsule ivermectin ivermectin No ivermectin [place] 3 mg tablet 3 mg tablet 3 mg M etro TAKE 6 TAKE 6 tablet Urology TABLETS BY TABLETS BY TAKE 6 MOUTH ON MOUTH ON TABLETS BY DAY 1 AND DAY 1 AND MOUTH ON DAY 3 DAY 3 DAY 1 AND DAY 3 Janumet XR Janumet XR No Janumet XR [place] 50 mg-1,000 50 mg-1,000 50 M etro mg mg mg-1,000 Urology tablet,exte tablet,exte mg nded nded tablet,ext release release ended release levothyroxi levothyroxi No levothyrox [place] ne 100 mcg ne 100 mcg ine 100 [facility] tablet tablet mcg tablet Urolo gy nitrofurant nitrofurant No nitrofuran [place] oin oin toin [facility] macrocrysta macrocrysta macrocryst Urology l 100 mg l 100 mg al 100 mg capsule capsule capsule TAKE 1 TAKE 1 TAKE 1 CAPSULE BY CAPSULE BY CAPSULE BY MOUTH TWICE MOUTH TWICE MOUTH A DAY A DAY TWICE A DAY nystatin nystatin No nystatin [place] 100,000 100,000 100,000 [facility] unit/gram unit/gram unit/gram Urology topical topical topical cream cream cream sulfamethox sulfamethox No sulfametho [place] azole 800 azole 800 xazole 800 [facility] mg-trimetho mg-trimetho mg-trimeth Urology prim 160 mg prim 160 mg oprim 160 tablet TAKE tablet TAKE mg tablet 1 TABLET 1 TABLET TAKE 1 EVERY 12 EVERY 12 TABLET HOURS BY HOURS BY EVERY 12 ORAL ROUTE ORAL ROUTE HOURS BY FOR 7 DAYS. FOR 7 DAYS. ORAL ROUTE FOR 7 DAYS. tamsulosin tamsulosin No tamsulosin [place] 0.4 mg 0.4 mg 0.4 mg [facility] capsule capsule capsule Urolog y TAKE 1 TAKE 1 TAKE 1 CAPSULE BY CAPSULE BY CAPSULE BY MOUTH DAILY MOUTH DAILY MOUTH DAILY Tresiba Tresiba No Tresiba [place] FlexTouch FlexTouch FlexTouch [facility] U-200 U-200 U-200 Urology insulin 200 insulin 200 insulin unit/mL (3 unit/mL (3 200 mL) mL) unit/mL (3 subcutaneou subcutaneou mL) s pen s pen subcutaneo us pen Trulicity Trulicity No Trulicity [place] 1.5 mg/0.5 1.5 mg/0.5 1.5 mg/0.5 [facility] mL mL mL Urology subcutaneou subcutaneou subcutaneo s pen s pen us pen injector injector injector Accu-Chek Accu-Chek No Accu-Chek [place] Fastclix Fastclix Fastclix Met ro Lancet Drum Lancet Drum Lancet Urology Drum Accu-Chek Accu-Chek No Accu-Chek [place] Guide test Guide test Guide test [facility] strips strips strips Urology amlodipine amlodipine No amlodipine [place] 10 10 10 [facility] mg-olmesart mg-olmesart mg-olmesar Urology an 20 mg an 20 mg perera 20 mg tablet tablet tablet atorvastati atorvastati No atorvastat [place] n 20 mg n 20 mg in 20 mg [facility] tablet tablet tablet Urology BD BD No BD [place] Ultra-Fine Ultra-Fine Ultra-Fine [facility] Roma Pen Roma Pen Roma Pen Uro logy Needle 32 Needle 32 Needle 32 gauge x gauge x gauge x " " " Cialis 20 Cialis 20 No 1 Cialis 20 [place] mg tablet mg tablet mg tablet [facility] Take 1 Take 1 Take 1 Urology tablet as tablet as tablet as needed by needed by needed by oral route. oral route. oral route. glipizide glipizide No glipizide [place] ER 10 mg ER 10 mg ER 10 mg Met ro tablet, tablet, tablet, Urolog y extended extended extended release 24 release 24 release 24 hr hr hr hydrochloro hydrochloro No hydrochlor [place] thiazide thiazide othiazide Me tro 12.5 mg 12.5 mg 12.5 mg Urolog y capsule capsule capsule Janumet XR Janumet No Janumet XR [place] 50 mg-1,000 50 mg-1,000 50 M etro mg mg mg-1,000 Urology tablet,exte tablet,exte mg nded nded tablet,ext release release ended release levothyroxi levothyroxi No levothyrox [place] ne 100 mcg ne 100 mcg ine 100 [facility] tablet tablet mcg tablet Urolo gy sulfamethox sulfamethox No sulfametho [place] azole 800 azole 800 xazole 800 [facility] mg-trimetho mg-trimetho mg-trimeth Urology prim 160 mg prim 160 mg oprim 160 tablet TAKE tablet TAKE mg tablet 1 TABLET BY 1 TABLET BY TAKE 1 MOUTH TWICE MOUTH TWICE TABLET BY A DAY A DAY MOUTH TWICE A DAY Accu-Chek Accu-Chek No Accu-Chek [facility] FastClix FastClix FastClix Fam pham Lancing Lancing Lancing Practi c Device Device Device e tamsulosin tamsulosin No tamsulosin [place] 0.4 mg 0.4 mg 0.4 mg [facility] capsule capsule capsule Urolog y TAKE 1 TAKE 1 TAKE 1 CAPSULE BY CAPSULE BY CAPSULE BY MOUTH DAILY MOUTH DAILY MOUTH DAILY Tresiba Tresiba No Tresiba [place] FlexTouch FlexTouch FlexTouch [facility] U-200 U-200 U-200 Urology insulin 200 insulin 200 insulin unit/mL (3 unit/mL (3 200 mL) mL) unit/mL (3 subcutaneou subcutaneou mL) s pen s pen subcutaneo us pen Accu-Chek Accu-Chek No Accu-Chek [facility] Guide test Guide test Guide test Family strips USE strips USE strips USE Practic 2 STRIPS 2 STRIPS 2 STRIPS e DAILY DAILY DAILY DIRECTED DIRECTED DIRECTED Accu-Chek Accu-Chek No Accu-Chek [place] Fastclix Fastclix Fastclix Met ro Lancet Drum Lancet Drum Lancet Urology Drum amlodipine amlodipine No amlodipine [facility] 10 10 10 Family mg-olmesart mg-olmesart mg-olmesar Practic an 20 mg an 20 mg perera 20 mg e tablet Take tablet Take tablet 1 tablet 1 tablet Take 1 every day every day tablet by oral by oral every day route. route. by oral route. Accu-Chek Accu-Chek No Accu-Chek [facility] test Guide test Guide test [place] strips strips strips Urology atorvastati atorvastati No atorvastat [facility] n 20 mg n 20 mg in 20 mg Famil y tablet TAKE tablet TAKE tablet Practic 1 TABLET BY 1 TABLET BY TAKE 1 e MOUTH DAILY MOUTH DAILY TABLET BY IN EVENING IN EVENING MOUTH WITH MEAL WITH MEAL DAILY IN EVENING WITH MEAL amlodipine amlodipine No amlodipine [place] 10 10 10 [facility] mg-olmesart mg-olmesart mg-olmesar Urology an 20 mg an 20 mg perera 20 mg tablet tablet tablet BD BD No 1needle Q1D [place] Ultra-Fine Ultra-Fine (s) Ultra-Fine Family Roma Pen Roma Pen Roma Pen Pra ctic Needle 32 Needle 32 Needle 32 e gauge x gauge x gauge x " Take " Take " Take 1 needle 1 needle 1 needle every day every day every day by miscell. by miscell. by route as route as miscell. directed. directed. route as directed. ciprofloxac ciprofloxac No ciprofloxa [facility] in 500 mg in 500 mg indra 500 mg Family tablet TAKE tablet TAKE tablet Practic 1 TABLET BY 1 TABLET BY TAKE 1 e MOUTH TWICE MOUTH TWICE TABLET BY A DAY A DAY MOUTH TWICE A DAY etodolac etodolac No etodolac [place] sadie 500 mg 500 mg 500 mg Family tablet TAKE tablet TAKE tablet Practic 1 TABLET BY 1 TABLET BY TAKE 1 e MOUTH TWICE MOUTH TWICE TABLET BY A DAY A DAY MOUTH TWICE A DAY fluticasone fluticasone No fluticason [facility] propionate propionate e Fam pham 50 50 propionate Practic mcg/actuati mcg/actuati 50 e on nasal on nasal mcg/actuat spray,suspe spray,suspe ion nasal nsion nsion spray,susp ension glipizide glipizide No glipizide [facility] ER 10 mg ER 10 mg ER 10 mg Fam pham tablet, tablet, tablet, Practi c extended extended extended e release 24 release 24 release 24 hr TAKE 1 hr TAKE 1 hr TAKE 1 TABLET BY TABLET BY TABLET BY MOUTH TWICE MOUTH TWICE MOUTH DAILY DAILY TWICE DAILY hydrochloro hydrochloro No hydrochlor [facility] thiazide thiazide othiazide Fa reema 12.5 mg 12.5 mg 12.5 mg Practi c capsule capsule capsule e hydrochloro hydrochloro No 1 Q1D hydrochlor [facility] thiazide thiazide othiazide Fa reema 12.5 mg 12.5 mg 12.5 mg Practi c tablet Take tablet Take tablet e 1 tablet 1 tablet Take 1 every day every day tablet by oral by oral every day route. route. by oral route. ivermectin ivermectin No ivermectin [facility] 3 mg tablet 3 mg tablet 3 mg F amily tablet Practic e Janumet XR Janumet XR No 1 BID Janumet XR [facility] 50 mg-1,000 50 mg-1,000 50 F amily mg mg mg-1,000 Practic tablet,exte tablet,exte mg e nded nded tablet,ext release release ended Take 1 Take 1 release tablet tablet Take 1 twice a day twice a day tablet by oral by oral twice a route for route for day by 90 days. 90 days. oral route for 90 days. levothyroxi levothyroxi No levothyrox [facility] ne 100 mcg ne 100 mcg ine 100 Family tablet Take tablet Take mcg tablet Practic 1 tablet 1 tablet Take 1 e every day every day tablet by oral by oral every day route. route. by oral route. multivitami multivitami No multivitam [facility] n in Family Practic e nitrofurant nitrofurant No nitrofuran [facility] oin oin toin Family macrocrysta macrocrysta macrocryst Practic l 100 mg l 100 mg al 100 mg e capsule capsule capsule TAKE 1 TAKE 1 TAKE 1 CAPSULE BY CAPSULE BY CAPSULE BY MOUTH TWICE MOUTH TWICE MOUTH A DAY A DAY TWICE A DAY nystatin nystatin No nystatin Karuna sadie 100,000 100,000 100,000 Family unit/gram unit/gram unit/gram Practic topical topical topical e cream cream cream nystatin nystatin No nystatin Karuna sadie 100,000 100,000 100,000 Family unit/gram unit/gram unit/gram Practic topical topical topical e ointment ointment ointment APPLY TO APPLY TO APPLY TO THE THE THE AFFECTED AFFECTED AFFECTED AREA(S) BY AREA(S) BY AREA(S) BY TOPICAL TOPICAL TOPICAL ROUTE 2 ROUTE 2 ROUTE 2 TIMES PER TIMES PER TIMES PER DAY DAY DAY sulfamethox sulfamethox No sulfametho [facility] azole 800 azole 800 xazole 800 Family mg-trimetho mg-trimetho mg-trimeth Practic prim 160 mg prim 160 mg oprim 160 e tablet TAKE tablet TAKE mg tablet 1 TABLET 1 TABLET TAKE 1 EVERY 12 EVERY 12 TABLET HOURS BY HOURS BY EVERY 12 ORAL ROUTE ORAL ROUTE HOURS BY FOR 7 DAYS. FOR 7 DAYS. ORAL ROUTE FOR 7 DAYS. tadalafil tadalafil No 1 Q1D tadalafil [facility] 20 mg 20 mg 20 mg Family tablet Take tablet Take tablet Practic 1 tablet 1 tablet Take 1 e every day every day tablet by oral by oral every day route. route. by oral route. tadalafil 5 tadalafil 5 No 1 Q1D tadalafil [facility] mg tablet mg tablet 5 mg Famil y Take 1 Take 1 tablet Practic tablet tablet Take 1 e every day every day tablet by oral by oral every day route for route for by oral 90 days. 90 days. route for 90 days. tamsulosin tamsulosin No tamsulosin [facility] 0.4 mg 0.4 mg 0.4 mg Family capsule capsule capsule Practi c Take 1 Take 1 Take 1 e capsule capsule capsule every day every day every day by oral by oral by oral route. route. route. Trulicity Trulicity No 1.5mg Q1W Trulicity [facility] 1.5 mg/0.5 1.5 mg/0.5 1.5 mg/0.5 Family mL mL mL Practic subcutaneou subcutaneou subcutaneo e s pen s pen us pen injector injector injector Inject 1.5 Inject 1.5 Inject 1.5 mg every mg every mg every week by week by week by subcutaneou subcutaneou subcutaneo s route as s route as us route directed directed as for 90 for 90 directed days. days. for 90 days. Immunizations Ordered Immunization Filled Immunization Date Status Commen ts Source Name Name influenza, influenza, 2021-07-04 Completed [facility] injectable, injectable, 00:00:00 Urology quadrivalent quadrivalent influenza, influenza, 2021-07-04 Completed [facility] injectable, injectable, 00:00:00 Urology quadrivalent quadrivalent influenza, influenza, 2021-07-04 [facility], [facility]:00 Urology quadrivalent quadrivalent influenza, influenza, 2021-07-04 Completed [facility], injectable, 00:00:00 Urology quadrivalent quadrivalent influenza, influenza, 2020-07-04 Completed [facility] inject[facility], injectable, 00:00:00 Urology quadrivalent quadrivalent influenza, influenza, 2020-07-04 Completed [facility] injectable, injectable, 00:00:00 Urology quadrivalent quadrivalent influenza, influenza, 2020-07-04 Completed [facility], injectable, 00:00:00 Urology quadrivalent quadrivalent influenza, influenza, 2020-07-04 Completed [facility] injectable, injectable, 00:00:00 Urology quadrivalent quadrivalent influenza, influenza, 2020-07-04 Completed [facility] injectable, injectable, 00:00:00 Urology quadrivalent quadrivalent influenza, influenza, 2018-05-13 Completed [facility] injectable, injectable, 00:00:00 Urology quadrivalent quadrivalent influenza, influenza, 2018-05-13 Completed [facility] injectable, injectable, 00:00:00 Urology quadrivalent quadrivalent influenza, influenza, 2018-05-13 Completed [facility] injectable, injectable, 00:00:00 Urology quadrivalent quadrivalent influenza, influenza, 2018-05-13 Completed [facility] injectable, injectable, 00:00:00 Urology quadrivalent quadrivalent influenza, influenza, 2018-05-13 Completed [facility], injectable, 00:00:00 Urology quadrivalent quadrivalent pneumococcal pneumococcal 2018-05-06 Completed [facility] polysaccharide PPV23 polysaccharide PPV23 00:00:00 Urology pneumococcal pneumococcal 2018-05-06 Completed [facility] polysaccharide PPV23 polysaccharide PPV23 00:00:00 Urology pneumococcal pneumococcal 2018-05-06 Completed [facility] polysaccharide PPV23 polysaccharide PPV23 00:00:00 Urology pneumococcal pneumococcal 2018-05-06 Completed [facility] polysaccharide PPV23 polysaccharide PPV23 00:00:00 Urology pneumococcal pneumococcal 2018-05-06 Completed [facility] polysaccharide PPV23 polysaccharide PPV23 00:00:00 Urology Vital Signs Vital Name Observation Time Observation Value Comments Source BP Diastolic 2022-05-02 00:00:00 73 mm[Hg] [facility] Height 2022-05-02 00:00:00 68 [in_i] [facility] BMI (Body Mass 2022-05-02 00:00:00 34.1 kg/m2 [facility]) Practice BP Systolic 2022-05-02 00:00:00 142 mm[Hg] [facility] Body Weight 2022-05-02 00:00:00 224 [lb_av] [facility] Height 2022-04-13 00:00:00 68 [in_i] [facility] Urology BMI (Body Mass 2022-04-13 00:00:00 35.3 kg/m2 [facility] Index) Urology Body Weight 2022-04-13 00:00:00 232 [lb_av] [facility] BP Diastolic 2021-11-22 00:00:00 74 mm[Hg] [facility] Height 2021-11-22 00:00:00 68 [in_i] [facility] BMI (Body Mass 2021-11-22 00:00:00 33.9 kg/m2 [facility] Practice BP Systolic 2021-11-22 00:00:00 145 mm[Hg] [facility] Body Weight 2021-11-22 00:00:00 223 [lb_av] [facility] BP Diastolic 2021-10-18 00:00:00 67 mm[Hg] [facility] Height 2021-10-18 00:00:00 68 [in_i] [facility] BMI (Body Mass 2021-10-18 00:00:00 35.3 kg/m2 [facility] Index) Urology BP Systolic 2021-10-18 00:00:00 129 mm[Hg] [facility] Body Weight 2021-10-18 00:00:00 232 [lb_av] [facility] BP Diastolic 2021-08-23 00:00:00 75 mm[Hg] [facility] Height 2021-08-23 00:00:00 68 [in_i] [facility] BMI (Body Mass 2021-08-23 00:00:00 34.3 kg/m2 [facility] Practice BP Systolic 2021-08-23 00:00:00 131 mm[Hg] [facility] Body Weight 2021-08-23 00:00:00 225.4 [lb_av] [facility] Height 2021-07-21 00:00:00 68 [in_i] [facility] BMI (Body Mass 2021-07-21 00:00:00 35.3 kg/m2 [facility] Index) Urology Body Weight 2021-07-21 00:00:00 232 [lb_av] [facility] BP Diastolic 2021-05-24 00:00:00 79 mm[Hg] [facility] Height 2021-05-24 00:00:00 68 [in_i] [facility] BMI (Body Mass 2021-05-24 00:00:00 34 kg/m2 [facility] Practice BP Systolic 2021-05-24 00:00:00 128 mm[Hg] [facility] Body Weight 2021-05-24 00:00:00 223.4 [lb_av] [facility] BP Diastolic 2021-02-17 00:00:00 75 mm[Hg] [facility] Height 2021-02-17 00:00:00 68 [in_i] [facility] BMI (Body Mass 2021-02-17 00:00:00 35.6 kg/m2 [facility]) Practice BP Systolic 2021-02-17 00:00:00 131 mm[Hg] [facility] Body Weight 2021-02-17 00:00:00 234.2 [lb_av] [facility] Practice Height 2020-12-07 00:00:00 68 [in_i] [facility] Urology BMI (Body Mass 2020-12-07 00:00:00 35.3 [facility]/m[facility] Body Weight 2020-12-07 00:00:00 232 [lb_av] [facility]rology BP Diastolic 2020-11-11 00:00:00 78 mm[Hg] [facility] Practice Height 2020-11-11 00:00:00 68 [in_i] [facility] Practice BMI (Body Mass 2020-11-11 00:00:00 35.4 kg/m2 [facility] Family Index) Practice BP Systolic 2020-11-11 00:00:00 130 mm[Hg] [facility] Body Weight 2020-11-11 00:00:00 233 [lb_av] [facility] Practice BP Diastolic 2020-08-19 00:00:00 62 mm[Hg] [facility] Practice Height 2020-08-19 00:00:00 68 [in_i] [facility] Practice BMI (Body Mass 2020-08-19 00:00:00 35.2 kg/m2 [facility] BP Systolic 2020-08-19 00:00:00 136 mm[Hg] [facility] Practice Body Weight 2020-08-19 00:00:00 231.4 [lb_av] [facility] Procedures Procedure Date / Time Performed Performing Clinician Sourc e unlisted imaging order 2020-12-07 00:00:00 Cuate baker [facility] Urology Colonoscopy 2011-12-03 00:00:00 [facility] Practice - Cystoscopy [facility] Urology - Kidney Stone [facility] Urology GI- Inguinal Hernia [facility] o Urology Lithotripsy [facility] Complete Repair of [facility] Famil y Rotator Cuff Practice Plan of Care Planned Activity Planned Date Details Comments Source Future Scheduled Test 2022-07-07 HEPATITIS B VACCINES [facility] 00:44:45 (1 of 3 - 3-dose series) [code = HEPATITIS B VACCINES (1 of 3 - 3-dose series)] Future Scheduled Test 2022-07-07 COVID-19 VACCINE (#1) [facility] 00:44:45 [code = COVID-19 VACCINE (#1)] Future Scheduled Test 2022-07-07 COLONOSCOPY SCREENING [facility] 00:44:45 [code = COLONOSCOPY SCREENING] Future Scheduled Test 2022-07-07 SHINGLES VACCINES (1 [facility] 00:44:45 of 2) [code = SHINGLES VACCINES (1 of 2)] Future Scheduled Test 2022-07-07 65+ PNEUMOCOCCAL Me [facility] 00:44:45 VACCINE (1 - PCV) [code = 65+ PNEUMOCOCCAL VACCINE (1 - PCV)] Future Scheduled Test 2022-07-07 INFLUENZA VACCINE [facility] 00:44:45 [code = INFLUENZA VACCINE] Diagnostic Test 2022-05-02 glucose, fingerstick, Karuna sadie Family Pending 00:00:00 blood [code = Practice glucose, fingerstick, blood] Diagnostic Test 2022-05-02 hemoglobin A1C, [facility] Pending 00:00:00 fingerstick [code = Practice hemoglobin A1C, fingerstick] Diagnostic Test 2022-04-13 PSA, serum or plasma [facility] Pending 00:00:00 [code = PSA, serum or Urolog y plasma] Diagnostic Test 2022-04-13 culture, urine + [facility] Pending 00:00:00 sensitivity [code = Urology culture, urine + sensitivity] Diagnostic Test 2022-04-13 urinalysis, dipstick [facility] Pending 00:00:00 [code = urinalysis, Urology dipstick] Diagnostic Test 2022-04-13 culture, urine [code [facility] Pending 00:00:00 = culture, urine] Urology Diagnostic Test 2022-04-13 urinalysis, dipstick [facility] Pending 00:00:00 [code = urinalysis, Urology dipstick] Future Appointment 2022-11-02 Wang Robles, [address] [facility] Family 00:00:[address], [place] [address] Future Appointment 2022-10-31 Wang Robles, [address] [facility] Family 09:15:[address] Practice [address], [place] [address] Future Appointment 2022-10-14 Tate Moreno, [facility] 00:00:00 [address] [address]; , [place] [address] Encounters Start End Encounter Admission Attending Care Care Encounter Source Date/Time Date/Time Type Type Clinicians Facility Department ID 2022-05-05 2022-05-05 Outpatient Daniel_T VFP VFP [id number] [facility] 00:00:00 00:00:00 [id number] Family Practic e 2022-05-04 2022-05-04 Outpatient Daniel_T VFP VFP [id number] [facility] 00:00:00 00:00:00 [id number] Family Practic e 2022-05-02 2022-05-02 Outpatient Daniel_T VFP VFP [id number] [facility] 00:00:00 00:00:00 [id number] Family Practic e 2022-05-02 2022-05-02 Wang VFP [place] - [id number] [facility] illage 00:00:00 00:00:00 [facility] Cory Robles MD: [id number] VM_DON_Francois e [address] [facility], [address], [place] [address] , Ph. 2022-04-26 2022-04-26 Outpatient Daniel_T VFP VFP [id number] [facility] 00:00:00 00:00:00 [id number] Family Practic e 2022-04-13 2022-04-13 Outpatient Goldfarb_R U [facility] [id number] [place] 00:00:00 00:00:00 [id number] [facility] 2022-04-13 2022-04-13 Tate [facility] [place] - [id number] Madeline cavazos 00:00:00 00:00:00 Silvano Moreno MD: [id number] [facility] [place] [address], [place] [address] , Ph. 2022-04-13 2022-04-13 Outpatient Josh Mignon [facility] [id number] 00:00:00 00:00:00 Tate [id number] 2022-04-12 2022-04-12 Outpatient Goldfarb_R [facility] 2056 [place] 00:00:00 00:00:00 [facility] 2022-04-09 2022-04-09 Outpatient Goldfarb_R HMU [facility] 2056 [place] 00:00:00 00:00:00 [id number] [facility] 2021-11-23 2021-11-23 Outpatient Daniel_T VFP VFP [id number] [facility] 12:09:00 12:09:00 [id number] Family Practic e 2021-11-22 2021-11-22 Outpatient Daniel_T VFP VFP [id number] [facility] 10:46:00 10:46:00 [id number] Family Practic e 2021-11-22 2021-11-22 Wang VFP [place] - [id number] V illage 00:00:00 00:00:00 [facility] Family RoblesCory - Pracinga martinez MD: [id number] VM_HOU_Shad e [address] [facility], [facility] [address], [place] [address] , Ph. 2021-11-21 2021-11-21 Outpatient Daniel_T VFP VFP [id number] [facility] 11:59:00 11:59:00 [id number] Family Practic e 2021-11-04 2021-11-04 Outpatient Goldfarb_R [facility] 2056 [place] 02:40:00 02:40:00 [id number] [facility] 2021-10-28 2021-10-28 Outpatient Goldfarb_R [facility] 2056 [place] 01:29:00 01:29:00 [facility] 2021-10-18 2021-10-18 Outpatient Goldfarb_R [facility] U [id number] [place] 11:43:00 11:43:00 [facility] 2021-10-18 2021-10-18 [facility] - [id number] Madeline cavazos 00:00:00 00:00:00 Silvano Moreno MD: 6560 [facility], [place] [address] , Ph. 2021-10-18 2021-10-18 Outpatient Josh, [facility] U [id number] 00:00:00 00:00:00 [place] [id number] 2021-09-05 2021-09-05 Outpatient Ghulamel_T VFP VFP [id number] [facility] 04:24:00 04:24:00 [id number] Family Practic e 2021-08-31 2021-08-31 Outpatient Goldfarb_R [facility] 2056 [place] 02:50:00 02:50:00 [id number] [facility] 2021-08-23 2021-08-23 Outpatient Ghulamel_T VFP VFP [id number] [facility] 11:53:00 11:53:00 [id number] Family Practic e 2021-08-23 2021-08-23 Wang VFP [place] - [id number] [facility] illage 00:00:00 00:00:00 [facility] Family RoblesCory - Practi michelle HAY: [id number] VM_HOU_Shad e Shadow [facility], [address], [place] [address] , Ph. 2021-08-22 2021-08-22 Outpatient Goldfarb_R [facility] 2056 [place] 03:04:00 03:04:00 [id number] [facility] 2021-08-19 2021-08-19 Outpatient Goldfarb_R [facility] [place] 07:43:00 07:43:00 [id number] [facility] 2021-08-19 2021-08-19 Tate [facility] [place] - [id number] H macy 00:00:00 00:00:00 Silvano Moreno MD: [facility] [facility] [address], - [facility] [address] , Ph. 2021-08-19 2021-08-19 Outpatient Josh, [facility] [id number] 00:00:00 00:00:00 Tate [id number] 2021-07-21 2021-07-21 Outpatient Goldfarb_R [facility] 2056 [place] 10:55:00 10:55:00 [id number] [facility] 2021-07-21 2021-07-21 Outpatient JERO Moreno [facility] [id number] 00:00:00 00:00:00 Tate [id number] 2021-07-21 2021-07-21 Tate [facility] [place] - [id number] [facility] 00:00:00 00:00:00 Silvano Moreno MD: 6560 [facility] [place] [id number] [place] [address] , Ph. 2021-07-14 2021-07-14 Outpatient Daniel_T VFP VFP [id number] [facility] 01:56:00 01:56:00 [id number] Family Practic e 2021-07-12 2021-07-12 Outpatient Goldfarb_R [facility] [id number] [place] 10:04:00 10:04:00 [id number] [facility] 2021-07-11 2021-07-11 Outpatient Goldfarb_R [facility] [id number] [place] 10:15:00 10:15:00 [id number] [facility] 2021-06-29 2021-06-29 Outpatient Daniel_T VFP VFP [id number] [facility] 05:34:00 05:34:00 [id number] Family Practic e 2021-05-24 2021-05-24 Outpatient Daniel_T VFP VFP [id number] [facility] 12:10:00 12:10:00 [id number] Family Practic e 2021-05-24 2021-05-24 Wang VFP [place] - [id number] V illage 00:00:00 00:00:00 [facility] Family RoblesCory - Nathalia martinez MD: [id number] VM_HOU_Shajacinta e [facility] [address] [facility], [address], [place] [address] , Ph. 2021-04-29 2021-04-29 Outpatient Daniel_T VFP VFP [id number] [address] [place] [address] 03:44:00 03:44:00 [id number] Family Practic e 2021-04-29 2021-04-29 Outpatient Daniel_T VFP VFP [id number] [address] [place] [address] 03:44:00 03:44:00 [id number] Family Practic e 2021-03-14 2021-03-14 Outpatient Daniel_T VFP VFP [id number] [address] [place] [address] 02:48:00 02:48:00 [id number] Family Practic e 2021-03-14 2021-03-14 Outpatient Daniel_T VFP VFP [id number] [address] [place] [address] 02:48:00 02:48:00 [id number] Family Practic e 2021-03-14 2021-03-14 Outpatient Daniel_T VFP VFP [id number] [address] [place] [address] 02:48:00 02:48:00 [id number] Family Practic e 2021-03-14 2021-03-14 Outpatient Daniel_T VFP VFP [id number] [address] [place] [address] 02:48:00 02:48:00 [id number] Family Practic e 2021-03-14 2021-03-14 Outpatient Daniel_T VFP VFP [id number] [address] [place] [address] 02:48:00 02:48:00 [id number] Family Practic e 2021-03-14 2021-03-14 Outpatient Daniel_T VFP VFP [id number] [address] [place] [address] 02:48:00 02:48:00 [id number] Family Practic e 2021-02-22 2021-02-22 Outpatient Daniel_T VFP VFP [id number] [address] [place] [address] 06:27:00 06:27:00 [id number] Family Practic e 2021-02-17 2021-02-17 Outpatient Daniel_T VFP VFP [id number] [address] [place] [address] 10:00:00 10:00:00 [id number] Family Practic e 2021-02-17 2021-02-17 Wang VFP [place] - [id number] V illage 00:00:00 00:00:00 [facility] Family Cory Robles - Nathalia martinez MD: [id number] FLY_DON_Francois e [address], [address], [place] [address] , Ph. 2020-12-29 2020-12-29 Outpatient Goldfarb_R [facility] [id number] [place] 02:44:00 02:44:00 [id number] [facility] 2020-12-27 2020-12-27 Outpatient Goldfarb_R [facility] [id number] [place] 03:52:00 03:52:00 [id number] [facility] 2020-12-08 2020-12-08 Outpatient Daniel_T VFP VFP [id number] [id number] [facility] 11:33:00 11:33:00 [id number] Family Practic e 2020-12-08 2020-12-08 Outpatient Daniel_T VFP VFP [id number] [id number] [facility] 11:33:00 11:33:00 [id number] Family Practic e 2020-12-08 2020-12-08 Outpatient Daniel_T VFP VFP [id number] [id number] [facility] 11:33:00 11:33:00 [id number] Family Practic e 2020-12-08 2020-12-08 Outpatient Daniel_T VFP VFP [id number] [id number] [facility] 11:33:00 11:33:00 [id number] Family Practic e 2020-12-07 2020-12-07 Outpatient Goldfarb_R [facility] [id number] [place] 12:09:00 12:09:00 [id number] [facility] 2020-12-07 2020-12-07 Outpatient Josh, HMMignon [facility] [id number] 00:00:00 00:00:00 [facility] [id number] 2020-12-07 2020-12-07 Tate [facility] [place] - [id number] Madeline cavazos 00:00:00 00:00:00 Silvano Moreno MD: [facility]60 [facility] [place] [address], [place] [address] , Ph. 2020-12-06 2020-12-06 Outpatient Goldfarb_R [facility] [id number] [place] 10:45:00 10:45:00 [id number] [facility] 2020-12-02 2020-12-02 Outpatient Daniel_T VFP VFP [id number] [facility] 03:07:00 03:07:00 [id number] Family Practic e 2020-11-17 2020-11-17 Outpatient Daniel_T VFP VFP [id number] [facility] 06:19:00 06:19:00 [id number] Family Practic e 2020-11-17 2020-11-17 Outpatient Daniel_T VFP VFP [id number] [facility] 06:19:00 06:19:00 [id number] Family Practic e 2020-11-11 2020-11-11 Outpatient Daniel_T VFP VFP [id number] [facility] 03:17:00 03:17:00 [id number] Family Practic e 2020-11-11 2020-11-11 Wang VFP [place] - [id number] V illage 00:00:00 00:00:00 [facility] - Practi c : [id number] FLY_Kimberlee herndon [facility], [facility] [address], [place] [address] , Ph. 2020-08-23 2020-08-23 Outpatient Daniel_T VFP VFP [id number] [address] [place] [address] 06:05:00 06:05:00 [id number] Family Practic e 2020-08-19 2020-08-19 Outpatient Daniel_T VFP VFP [id number] [address] [place] [address] 02:11:00 02:11:00 [id number] Family Practic e 2020-08-19 2020-08-19 Wang VFP [place] - [id number] V illage 00:00:00 00:00:00 [facility] - Practi c : 76935 VMLorna herndon [facility] [address], [place] [address] , Ph. 2020-08-17 2020-08-17 Outpatient Daniel_T VFP VFP [id number] [facility] 03:53:00 03:53:00 [id number] Family Practic e Results Test Description Test Time Test Comments Results Result Comments Source Hemoglobin A1c measurement device panel 2022-05-02 10:57:49 Test Item Value Reference Range Interpretation Comme nts Hemoglobin A1c/Hemoglobin.total in Blood (test code = 4548-4) 6.8 % 5.7-6.4 [facility] in Capillary [id number] 10:53:12 Test Item Value Reference Range Interpretation Comments Blood Glucose: mg/dl (test code = Blood 168 Glucose: mg/dl) [facility] device [id number] 10:21:16 Test Item Value Reference Range Interpretation Comments Hemoglobin A1C Fingerstick: (test code 7.5 = Hemoglobin A1C Fingerstick:) [facility] [Mass/volume] in Capillary [id number] 10:21:05 Test Item Value Reference Range Interpretation Comments Blood Glucose: mg/dl (test code = Blood 209 Glucose: mg/dl) [facility] measurement device [id number] 09:54:09 Test Item Value Reference Range Interpretation Comments Hemoglobin A1C Fingerstick: (test code 7.2 = Hemoglobin A1C Fingerstick:) [facility] [Mass/volume] in Capillary [id number] 09:38:50 Test Item Value Reference Range Interpretation Comments Blood Glucose: mg/dl (test code = Blood 211 Glucose: mg/dl) [facility] identified in Urine by [id number] 00:00:00 Test Item Value Reference Range Interpretation Comments Bacteria identified in Urine by see below no growth Culture (test code = 630-4) [facility] UrologyUrinalysis macro (dipstick) panel - [id number] 09:37:00 Test Item Value Reference Range Interpretation Comments leukocytes (test code negative neg = leukocytes) urobilinogen (test 0.2 E.U./dL sm amt (.5-1mg/dL) code = urobilinogen) protein (test code = negative See_Comment [Autom ated protein) message] The sy stem which generated this result transmitted reference range : <=150 mg/d. The reference range was not used to interpret this result as normal/abnormal . pH (test code = pH) 5.0 4.5-8 blood (test code = negative See_Comment [Automat ed blood) message] The sy stem which generated this result transmitted reference range : <=3 RBC. The reference range was not used to interpret this result as normal/abnormal . specific gravity 1.025 1.005-1.025 (test code = specific gravity) ketone (test code = 15 mg/dL none ketone) bilirubin (test code negative neg = bilirubin) glucose (test code = 100 mg/dL See_Comment [Autom ated glucose) message] The sy stem which generated this result transmitted reference range : <=130 mg/d. The reference range was not used to interpret this result as normal/abnormal . color (test code = yellow yellow color) clarity (test code = clear clear or cloudy clarity) nitrite (test code = negative neg nitrite) [facility] Urology
[2022-07-18 13:45] LABS: Absolute Lymphocytes (CBC) 1.8 K/uL (0.7-4.9); Hematocrit 43.8 % (39.6-49.0); MPV 7.1 fL (7.6-11.3); RBC Red Blood Cell Count 5.16 M/uL (4.33-5.43)
[2022-07-18] MEDS ORDERED: MAGNES/ALUMIN/SIMET 30ML UCUP ONE (13:45)
[2022-07-18] MEDS ORDERED: PANTOPRAZOLE 40 MG INJ ONE (13:45)
[2022-07-18 13:46] LABS: Protime INR 1.01
[2022-07-18] MEDS ORDERED: LIDOCAINE VISCOUS 2% SOLN 15 ML UDC ONE (13:46)
--- NOTE | 2022-07-18 13:59 | RAD REPORT ---
EXAM DESCRIPTION: RAD - Chest Single View - 07/18/2022 1:46 pm CLINICAL HISTORY: CHEST PAIN COMPARISON: Two view chest 02/02/2020 TECHNIQUE: AP portable chest image was obtained 07/18/2022 1:46 pm . FINDINGS: No peripheral mass or consolidation. Interstitial markings are mildly prominent but not cl early different from comparison. Hilar regions are similar to prior study as well. Cardiac leads over lie the chest. Heart and vasculature are normal. No measurable pleural effusion and no pneumothorax. No acute bony abnormality seen. No acute aortic findings suspected. IMPRESSION: No acute cardiopulmonary process. No significant change from comparison study.
[2022-07-18 14:08] LABS: ALT/SGPT 70 U/L (12-78); AST/SGOT 25 U/L (15-37); Albumin 4.1 g/dL (3.4-5.0); Alkaline Phosphatase 66 U/L (45-117); BUN Blood Urea Nitrogen 21 mg/dL (7-18); Bicarbonate 23 mmol/L (21-32); Bilirubin Direct 0.1 mg/dL (0-0.2); Bilirubin Total 0.4 mg/dL (0.2-1.0); Glomerular Filtration Rate 69 ml/min (=/>90); Glucose Level 252 mg/dL (74-106); Magnesium 1.8 mg/dL (1.8-2.4); Potassium 3.8 mmol/L (3.5-5.1); Protein, Total 8.3 g/dL (6.4-8.2); Sodium Level 134 mmol/L (136-145); Troponin High Sensitivity 8.8 pg/mL (<58.9)
[2022-07-18 14:10] LABS: NT PRO-BNP < 5 pg/mL (<125)
--- NOTE | 2022-07-18 14:23 | EKG ---
Test Date: 2022-07-18 Test Time: 13:25:13 Surgeon Partner: MARCIE MEASUREMENT RESULTS: Intervals: Rate: 89 DC: 154 QRSD: 94 QT: 352 QTc: 428 [place]: P: 64 DC: 154 QRS: 80 T: 56 INTERPRETIVE STATEMENTS: Normal sinus rhythm Normal ECG Compared to ECG 06/05/2013 16:37:33 No significant changes Electronically Signed On 07-18-22 14:22:19 CRUTCHER HELPER by Shahzad Hayes
--- NOTE | 2022-07-18 17:22 | EDPHYS ---
Physician Documentation [facility] Name: Louis Grady Jr Age: 66 yrs Sex: Male : 1955 Arrival Date: 07/18/2022 Time: 13:06 Bed 3 Private MD: Whit Lovelace C ED Physician Bruno Gentile HPI: 07/18 13:30 This 66 yrs old Male presents to ER via Ambulatory with complaints of Chest cp Pain. 13:30 The patient or guardian reports chest pain that is located primarily in the anterior cp chest wall, left. Onset: last week. The chest pain is described as a pressure, and felling like heartburn. 13:30 Duration: The patient or guardian reports multiple episodes, that wax and wane. cp 13:30 Patient reports onset of symptoms for about 1 week that was relieved temporarily with cp use of TUMs. Patient reports he exercises by walking about [id number] steps a day but did reduce his step count to about 8500. Patient denies having any chest pain with this. Patient's fitness sales associate is DR Tinajero and patient reports normal stress test done in Sep or Oct. Historical: - Allergies: 13:17 PENICILLINS; jl7 - PMHx: 13:17 BPH; Diabetes - NIDDM; High Cholesterol; Hypertension; Hypothyroidism; Kidney stones; jl7 - Immunization history:: Adult Immunizations unknown. - Social history:: Smoking status: Patient denies any tobacco usage or history of. ROS: 13:35 Constitutional: Negative for body aches, chills, fever, poor PO intake. cp 13:35 Eyes: Negative for injury, pain, redness, and discharge. cp 13:35 ENT: Negative for drainage from ear(s), ear pain, sore throat, difficulty swallowing, difficulty handling secretions. 13:35 Cardiovascular: Positive for chest pain, Negative for edema, palpitations. 13:35 Respiratory: Negative for cough, shortness of breath, wheezing. 13:35 Abdomen/GI: Negative for abdominal pain, nausea, vomiting, and diarrhea. 13:35 Back: Negative for pain at rest, pain with movement. 13:35 Neuro: Negative for altered mental status, dizziness, headache, numbness, syncope, cp weakness. 13:35 All other systems are negative. cp Exam: 13:30 ECG was reviewed by the Attending Physician. cp 13:38 Constitutional: The patient appears in no acute distress, alert, awake, comfortable, cp non-diaphoretic, non-toxic, well developed, well nourished. 13:38 Head/Face: Normocephalic, atraumatic. cp 13:38 Eyes: Periorbital structures: appear normal, Conjunctiva: normal, no exudate, no injection, Sclera: no appreciated abnormality, Lids and lashes: appear normal, bilaterally. 13:38 ENT: External ear(s): are unremarkable, Nose: is normal, Mouth: Lips: moist, Oral mucosa: pink and intact, moist, Posterior pharynx: Airway: no evidence of obstruction, patent. 13:38 Neck: ROM/movement: is normal, is supple, without pain, no range of motions limitations. 13:38 Chest/axilla: Inspection: normal, Palpation: is normal, no crepitus, no tenderness. 13:38 Cardiovascular: Rate: tachycardic, Rhythm: regular, Edema: is not appreciated, JVD: is not appreciated. 13:38 Respiratory: the patient does not display signs of respiratory distress, Respirations: normal, no use of accessory muscles, no retractions, labored breathing, is not present, Breath sounds: are clear throughout, no decreased breath sounds, no stridor, no wheezing. 13:38 Abdomen/GI: Inspection: abdomen appears normal, Palpation: abdomen is soft and non-tender, in all quadrants. 13:38 Back: pain, is absent, ROM is normal. 13:38 Neuro: Orientation: to person, place \T\ time. Mentation: is normal, Motor: moves all fours, strength is normal, Sensation: is normal. Vital Signs: 13:15 BP 129 / 89; Pulse 105; Resp 16; Temp 98.9; Pulse Ox 99% ; jl7 13:30 BP 137 / 78; Pulse 86; Resp 16; Pulse Ox 99% on R/A; db 14:15 BP 123 / 73; Pulse 88; Resp 18; Pulse Ox 98% on R/A; db 15:45 BP 120 / 74; Pulse 84; Resp 16; Pulse Ox 98% on R/A; db 16:30 BP 118 / 76; Pulse 85; Resp 16; Pulse Ox 99% on R/A; db 17:30 BP 130 / 86; Pulse 84; Resp 18; Temp 97.8; Pulse Ox 99% on R/A; ph MDM: 13:18 Patient medically screened. cp 14:00 Differential diagnosis: abnormal EKG, acute myocardial infarction, esophagitis, cp gastritis, gastroesophageal reflux disease (GERD), pancreatitis, pericarditis, pleurisy, pneumonia, pneumothorax, pulmonary embolus, stable angina, unstable angina. 17:17 Data reviewed: vital signs, nurses notes, lab test result(s), EKG, radiologic studies, cp plain films. Test interpretation: by ED physician or midlevel provider: ECG, plain radiologic studies. ED course: Patient reports symptoms resolved with GI cocktail and Protonix. EKG, initial and repeat troponin negative. Consult with DR Lovelace \[id number] who see patient in clinic for f/u. 07/18 13:19 Order name: Basic Metabolic Panel; Complete Time: 14:17 07/18 14:17 Interpretation: Normal except: NA 134; GLUC 252; BUN 21; GFR 69. 07/18 13:19 Order name: CBC with Diff; Complete Time: 14:17 07/18 14:17 Interpretation: Normal except: MPV 7.1. 07/18 13:19 Order name: LFT's; Complete Time: 14:17 07/18 14:17 Interpretation: Normal except: TP 8.3; GLOB 4.2; A/G 1.0. 07/18 13:19 Order name: Magnesium; Complete Time: 14:17 07/18 13:19 Order name: NT PRO-BNP; Complete Time: 14:17 07/18 13:19 Order name: PT-INR; Complete Time: 14:17 07/18 13:19 Order name: Troponin HS; Complete Time: 14:17 07/18 14:18 Interpretation: Troponin HS 8.8; Reviewed. 07/18 13:19 Order name: XRAY Chest (1 view); Complete Time: 14:17 07/18 13:19 Order name: EKG; Complete Time: 13:19 07/18 13:19 Order name: Cardiac monitoring; Complete Time: 13:29 07/18 13:19 Order name: EKG - Nurse/Tech; Complete Time: 13:29 07/18 15:41 Order name: Troponin HS; Complete Time: 17:12 db 07/18 13:19 Order name: IV Saline Lock; Complete Time: 13:37 cp 07/18 13:19 Order name: Labs collected and sent; Complete Time: 13:37 cp 07/18 13:19 Order name: O2 Per Protocol; Complete Time: 13:29 cp 07/18 13:19 Order name: O2 Sat Monitoring; Complete Time: 13:29 cp EC:30 Rate is 89 beats/min. Rhythm is regular. [place] interval is normal. QRS interval is normal. cp QT interval is normal. T waves are Inverted in lead aVR. Interpreted by me. Reviewed by me. Administered Medications: 13:45 Drug: GI Cocktail without - (Maalox Suspension 30 ml, Lidocaine Liquid 2 % 15 db ml) Route: PO; 15:42 Follow up: Response: No adverse reaction db 13:45 Drug: ProTONIX (pantoprazole) 40 mg Route: IVP; Site: right antecubital; db 15:42 Follow up: Response: No adverse reaction db Disposition: 18:39 Co-signature as Attending Physician, Bruno Gentile MD. rn Disposition Summary: 07/18/22 17:21 Discharge Ordered Location: Home cp Problem: new cp Symptoms: have improved cp Condition: Stable cp Diagnosis - Gastro-esophageal reflux disease without esophagitis cp Followup: cp - With: Whit Lovelace MD - When: 2 - 3 days - Reason: Recheck today's complaints Discharge Instructions: - Discharge Summary Sheet cp - Food Choices for Gastroesophageal Reflux Disease, Adult cp - Gastroesophageal Reflux Disease, Adult cp - Indigestion cp Forms: - Medication Reconciliation Form cp - Thank You Letter cp - Antibiotic Education cp - Prescription Opioid Use cp Prescriptions: - Protonix 40 mg Oral Tablet - take 1 tablet by ORAL route once daily; 30 tablet; Refills: 0, Product cp Selection Permitted Signatures: Dispatcher [employer] Bruno Rider MD MD rn Page, Corey, PA PA cp Marianela Benton RN RN jlNica Lu RN RN db Corrections: (The following items were deleted from the chart) 16:27 13:30 The chest pain is described as a pressure, cp cp
--- NOTE | 2022-07-18 17:22 | ER ---
Nurse's Notes [facility] Name: Louis Grady Jr Age: 66 yrs Sex: Male : 1955 Arrival Date: 07/18/2022 Time: 13:06 Bed 3 Private MD: Whit Lovelace C Diagnosis: Gastro-esophageal reflux disease without esophagitis Presentation: 07/18 13:15 Chief complaint: Patient states: Indigestion x 1 week with a feeling of chest pressure. jl7 Dr. Lovelace sent me to be evaluated. Coronavirus screen: At this time, the client does not indicate any symptoms associated with coronavirus-19. Ebola Screen: No symptoms or risks identified at this time. Initial Sepsis Screen: Does the patient meet any 2 criteria? No. Patient's initial sepsis screen is negative. Does the patient have a suspected source of infection? No. Patient's initial sepsis screen is negative. Risk Assessment: Do you want to hurt yourself or someone else? Patient reports no desire to harm self or others. Onset of symptoms was July 11, 2022. 13:15 Method [facility] Ar[facility] 13:15 Acuity: RUDY 2 jl7 Triage Assessment: 13:17 General: Appears in no apparent distress. uncomfortable, Behavior is calm, cooperative, jl7 appropriate for age. Pain: Complains of pain in anterior aspect of left upper chest. Cardiovascular: Patient's skin is warm and dry. Historical: - Allergies: 13:17 PENICILLINS; jl7 - PMHx: 13:17 BPH; Diabetes - NIDDM; High Cholesterol; Hypertension; Hypothyroidism; Kidney stones; jl7 - Immunization history:: Adult Immunizations unknown. - Social history:: Smoking status: Patient denies any tobacco usage or history of. Screenin:34 Abuse screen: Denies threats or abuse. Denies injuries from another. Nutritional db screening: No deficits noted. Tuberculosis screening: No symptoms or risk factors identified. Fall Risk None identified. No fall in past 12 months (0 pts). No secondary diagnosis (0 pts). IV access (20 points). Ambulatory Aid- None/Bed Rest/Nurse Assist (0 pts). Gait- Normal/Bed Rest/Wheelchair (0 pts) Mental Status- Oriented to own ability (0 pts). Total Fong Fall Scale indicates No Risk (0-24 pts). Assessment: 13:38 Also complains of. Reassessment: Patient appears in no apparent distress at this time. db Patient is alert, oriented x 3, equal unlabored respirations, skin warm/dry/pink. states indigestion x 1 week. States pain has continued and pain with eating. General: Appears in no apparent distress. Behavior is calm, cooperative, appropriate for age. Pain: Complains of pain in chest and abdomen Pain radiates to chest. Pain: Pain began about 1 week ago. Neuro: No deficits noted. Level of Consciousness is awake, alert, obeys commands, Oriented to person, place, time, situation, Appropriate for age Moves all extremities. Gait is steady, Speech is normal, Facial symmetry appears normal. Cardiovascular: Reports chest pain. Respiratory: No deficits noted. GI: Abdomen is flat, non-distended, Reports indigestion. : No deficits noted. No signs and/or symptoms were reported regarding the genitourinary system. EENT: No deficits noted. No signs and/or symptoms were reported regarding the EENT system. Vital Signs: 13:15 BP 129 / 89; Pulse 105; Resp 16; Temp 98.9; Pulse Ox 99% ; jl7 13:30 BP 137 / 78; Pulse 86; Resp 16; Pulse Ox 99% on R/A; db 14:15 BP 123 / 73; Pulse 88; Resp 18; Pulse Ox 98% on R/A; db 15:45 BP 120 / 74; Pulse 84; Resp 16; Pulse Ox 98% on R/A; db 16:30 BP 118 / 76; Pulse 85; Resp 16; Pulse Ox 99% on R/A; db 17:30 BP 130 / 86; Pulse 84; Resp 18; Temp 97.8; Pulse Ox 99% on R/A; ph Vitals: 16:30 Cardiac Rhythm Assessment Regular Sinus rhythm. db ED Course: 13:06 Patient arrived in ED. as 13:07 Whit Lovelace MD is Private Physician. as 13:07 [facility]urto [facility]. cp 13:08 Bruno Gentile MD is Attending Physician. cp 13:17 Triage completed. jl7 13:17 Arm band placed on right wrist. jl7 13:25 Nica Pedraza, RN is Primary Nurse. db 13:30 EKG done, by ED staff, reviewed by Reddy MURO. jl7 13:34 No provider procedures requiring assistance completed. Inserted saline lock: 20 gauge db in right antecubital area, using aseptic technique. Blood collected. Patient maintains SpO2 saturation greater than 95% on room air. 13:48 XRAY Chest (1 view) In Process Unspecified. EDMS 14:00 Patient has correct armband on for positive identification. Bed in low position. Call db light in reach. Side rails up X 1. Client placed on continuous cardiac and pulse oximetry monitoring. NIBP monitoring applied. 17:16 Warm blanket given. db 17:20 Whit Lovelace MD is Referral Physician. cp 17:30 IV discontinued, intact, bleeding controlled, No redness/swelling at site. Pressure ph dressing applied. Administered Medications: 13:45 Drug: GI Cocktail without - (Maalox Suspension 30 ml, Lidocaine Liquid 2 % 15 db ml) Route: PO; 15:42 Follow up: Response: No adverse reaction db 13:45 Drug: ProTONIX (pantoprazole) 40 mg Route: IVP; Site: right antecubital; db 15:42 Follow up: Response: No adverse reaction db Medication: 13:38 VIS not applicable for this client. db Outcome: 17:21 Discharge ordered by MD. cp 17:30 Discharged to home ambulatory, with significant other. ph 17:30 Condition: good 17:30 Discharge instructions given to patient, Instructed on discharge instructions, follow up and referral plans. medication usage, Demonstrated understanding of instructions, follow-up care, medications, Prescriptions given X 1. 17:31 Patient left the ED. ph Signatures: Dispatcher [employer] [facility] Slime Hernandez Patricia, RN RN Reddy Pratt PA PA cp Leal, Jahala, RN RN jl7 Nica Pedraza RN RN db
[2022-07-18 17:39] VITALS: O2SAT 99
[2022-07-18 17:41] VITALS: BP 130/86; TEMP 97.8
== END 2022-07-18 17:31 | disposition home or self-care (01) ==
LOC: ER 13:05
DX: K21.9 Gastro-esophageal reflux disease without esophagitis (principal); Z88.0 Allergy status to penicillin
CPT/HCPCS: 93005; 85025; 80048; 36415; 83735; 85610; 80076; 84484 ×2; 83880; 71045; 96374; 99284; C9113

== ENCOUNTER 2022-07-24 07:25 | Day surgery (SDC) | payer OTHER ==
[2022-07-24] MEDS ORDERED: NA CHLORIDE 0.9% 500 ML ONE (07:28)
[2022-07-24] MEDS ORDERED: FENTANYL CITR 100 MCG/2 ML ONE (07:59)
[2022-07-24] MEDS ORDERED: MIDAZOLAM HCL 2 MG/2 ML INJ ONE (07:59)
[2022-07-24] MEDS ORDERED: HEPA 1000U/500MLS 1,000 UNIT/500 ML BAG IV ONE (07:59)
[2022-07-24] MEDS ORDERED: ATROPINE SULF 1 MG/10 ML SYR IV ONE (08:00)
[2022-07-24] MEDS ORDERED: NA CHLORIDE 0.9% 50 ML IV ONE (08:00)
[2022-07-24] MEDS ORDERED: LIDOCAINE 1% 20 ML MDV ONE (08:01)
[2022-07-24] MEDS ORDERED: NITROGLYCERIN 100 MCG/ML SYR (for cath lab use only) IV ONE (08:02)
[2022-07-24] MEDS ORDERED: PRASUGREL (EFFIENT) 10 MG TAB ONE (09:18)
[2022-07-24] MEDS ORDERED: ASPIRIN 325 MG TAB ONE (09:27)
[2022-07-24] MEDS ORDERED: ACETAMINOPHEN 325 MG TABLET ONE (11:04)
[2022-07-24 11:08] VITALS: TEMP 98
[2022-07-24 12:59] VITALS: O2SAT 96
[2022-07-24 15:59] VITALS: BP 129/77
--- NOTE | 2022-07-24 23:18 | OP ---
Date of Procedure: 07/24/2022 Surgeon: Ramon Tinajero MD History: Mr. Grady was scheduled after I saw him in the office for a catheterization today because of unstable angina. He has a history of diabetes, hypertension, and dyslipidemia. Procedure In Detail: He is 66, brought to the laboratory technician today, prepped and draped in routine sterile fashion. Given Versed and fentanyl for sedation, using 10 cc of Xylocaine and Seldinger technique, a 6-Lao sheath introduced in the right common femoral artery successfully. Angiography there, was normal. StarClose was used to close the case. Ren catheter left and right were used to do the d iagnostic catheterization. His RCA had a 50% proximal stenosis. The left main was normal. There wa s about a 60% to 70% ostial long ramus stenosis. Circumflex itself was normal. The LAD proximally h as some mild plaquing with a 90% to 95% mid LAD stenosis. We decided to intervene. An XB LAD 3.5 gu molly catheter, 6-Lao was used to cannulate the left main. A Davenport wire was used to cross the lesi on. A 2.5 x 16 Synergy stent was deployed at 14 atmospheres with 0% residual. Intracoronary nitrogl ycerin was given before the final picture. Angiography showed 0% residual. No dissection or thrombu s. Angiomax, Effient 60 mg and aspirin were given during the procedure. Total conscious sedation wa s 45 minutes. Final Diagnoses: Severe coronary artery disease, status post successful primary stent in the mid LAD . We will observe the RCA in the ramus with stress testing down the road and monitor his symptoms. He will be in the hospital until 4 p.m. today and he will be discharged with his home medications exc ept we will add Plavix 75 mg daily, increase his Lipitor to 80 mg daily. I will see him in the office in the next 2 weeks. MONIQUE/TERRY Voice ID: [id number] Report ID: [id number]
== END 2022-07-24 14:03 | disposition home or self-care (01) ==
LOC: CCL 07:25
DX: I25.110 Atherosclerotic heart disease of native coronary artery with unstable angina pectoris (principal); I10 Essential (primary) hypertension; R09.89 Other specified symptoms and signs involving the circulatory and respiratory systems; E78.2 Mixed hyperlipidemia; E11.9 Type 2 diabetes mellitus without complications; E03.9 Hypothyroidism, unspecified; N40.0 Benign prostatic hyperplasia without lower urinary tract symptoms; E66.9 Obesity, unspecified; Z68.33 Body mass index [BMI] 33.0-33.9, adult; Z87.891 Personal history of nicotine dependence; Z79.82 Long term (current) use of aspirin; Z79.84 Long term (current) use of oral hypoglycemic drugs; Z79.85 Long-term (current) use of injectable non-insulin antidiabetic drugs; Z88.0 Allergy status to penicillin; Z82.49 Family history of ischemic heart disease and other diseases of the circulatory system
CPT/HCPCS: 82947; 85347 ×2; 92928; 93454; C1893; Q9967; C1725; C1877; J2250; J3010; J0583; J7040; J1644; C9600; J0461